=== PATIENT | male | born 1930 | race Caucasian/White ===

== ENCOUNTER 2018-03-22 21:03 | Inpatient (IN) | payer MEDICARE, MEDICAID ==
[~2018-03-22] VITALS: Ht 172.7 cm; Wt 65.8 kg
--- NOTE | 2018-03-22 21:25 | NUR ---
PATIENT BIB PRIVATE AMBULANCE FROM [facility] FOR FEVER. UPON ARRIVAL PATIENT IS AFBRILE. PATIENT IS A/O X1. F/C IN PLACE.
[2018-03-22 21:42] LABS: BASOPHILS # (AUTO) 0.1 K/uL (0.0-8.0); BASOPHILS % (AUTO) 0.6 % (0.0-2.0); EOSINOPHILS # (AUTO) 0.1 K/uL (0.0-0.7); EOSINOPHILS % (AUTO) 0.6 % (0.0-7.0); HEMATOCRIT 41.3 % (36.7-47.1); HEMOGLOBIN 13.9 g/dL (12.5-16.3); LYMPHOCYTES # (AUTO) 2.5 K/uL (20.0-40.0); LYMPHOCYTES % (AUTO) 18.7 % (20.5-51.5); MEAN CORPUSCULAR HEMOGLOBIN 30.3 uug (23.8-33.4); MEAN CORPUSCULAR HGB CONC 34 g/dL (32.5-36.3); MEAN CORPUSCULAR VOLUME 89.8 fL (73.0-96.2); MONOCYTES # (AUTO) 1.6 K/uL (2.0-10.0); NEUTROPHILS % (AUTO) 68.1 % (38.5-71.5); PLATELET COUNT (AUTO) 136 K/uL (152-348); WHITE BLOOD COUNT (AUTO) 13.2 K/uL (3.6-10.2)
[2018-03-22 21:51] LABS: CARBON DIOXIDE 28 mmol/L (21-32); CHLORIDE 103 mmol/L (98-107); GLUCOSE 121 mg/dL (74-106); UREA NITROGEN, BLOOD 9 mg/dL (7-18)
[2018-03-22] MEDS ORDERED: MEMA28CA PO (21:55)
[2018-03-22] MEDS ORDERED: TAMS-3 PO (21:55)
[2018-03-22] MEDS ORDERED: CARV6.252 PO (21:55)
[2018-03-22] MEDS ORDERED: ACET325T53 PO (21:55)
[2018-03-22] MEDS ORDERED: LORA-258 PO (21:55)
[2018-03-22] MEDS ORDERED: CHOL100043 PO (21:55)
[2018-03-22] MEDS ORDERED: LORA0.5T PO (21:55)
[2018-03-22] MEDS ORDERED: DIVA125T2 PO (21:55)
[2018-03-22 22:03] LABS: ALANINE AMINOTRANSFERASE 126 U/L (16-63); ALKALINE PHOSPHATASE 59 U/L (50-136); ASPARTATE AMINOTRANSFERASE 72 U/L (15-37); BILIRUBIN,DIRECT 0.3 mg/dL (0.0-0.2); TOTAL PROTEIN, SERUM 7.4 g/dL (6.4-8.2)
[2018-03-22 22:11] LABS: *BILIRUBIN,URIN NEGATIVE (NEGATIVE); *BLOOD, URINE Trace-lysed (NEGATIVE); *CLARITY,URINE CLEAR (CLEAR); *COLOR,URINE YELLOW (YELLOW); *KETONES,URINE TRACE (NEGATIVE); *PROTEIN,URINE NEGATIVE (NEGATIVE); LEUKOCYTE ESTERASE ,URINE 1+ (NEGATIVE); NITRITE, URINE NEGATIVE (NEGATIVE); PH,URINE 7.5 (5.0-8.0); UGLUCOSE NEGATIVE (NEGATIVE)
[2018-03-22] MEDS ORDERED: PIPERACILLIN SODIUM/TAZOBACTAM 3.375 G in IV DEXTROSE 5% 50 ML IV ONE (22:30)
[2018-03-22] MEDS ORDERED: VANCOMYCIN IV 1,000 MG in IV DEXTROSE 5% 250 ML IV ONE (22:30)
--- NOTE | 2018-03-22 22:32 | NUR ---
MAXIMILIANO PAGED, REBECCA ELLIS HIM DIRECTOR ASSEMBLY HAND WAS PAGED.
[2018-03-22] MEDS ORDERED: PIPERACILLIN/TAZOBACTAM/D5W 50 ML IV ONE (22:39)
[2018-03-22] MEDS ORDERED: VANCOMYCIN IV 200 ML ONE (22:58)
--- NOTE | 2018-03-22 23:18 | NUR ---
Pt. admitted to TELE , under care of Dr. EDWARDS Belongs List completed. REPORT GIVEN TO RISSA LALA
--- NOTE | 2018-03-22 23:30 | NUR ---
Received pt on tele unit via [employer], under care of DR GRACE MD. Pt awake, AxO x1 to name. Tele placed and noted to be V pacing with occasional PVCs with a HR of 72. O2 sat 97% with 4L NC. Redness on left groin area noted. Pt unable to provide any health history or further medical information. Unit orientation and pertinent assessments done. Pt shows no s/s of acute distress at this time. Will continue to monitor closely and carry out all orders.
[2018-03-23] MEDS ORDERED: ACETAMINOPHEN 325 MG TABLET PO PRN
[2018-03-23] MEDS ORDERED: MAGNESIUM HYDROXIDE 30 ML LIQUID UDC PO PRN
[2018-03-23] MEDS ORDERED: Z GUARD REMEDY PASTE 57 GM TUBE TOP PRN
[2018-03-23] MEDS ORDERED: MORPHINE SULFATE 2 MG/1 ML DISP.SYRIN IV PRN
[2018-03-23] MEDS ORDERED: ONDANSETRON 4 MG/2 ML VIAL IV PRN
[2018-03-23 00:36] VITALS: BP 133/78
[2018-03-23] MEDS: LORAZEPAM 2 MG/1 ML VIAL IV PRN ×2 (03:40→22:44)
[2018-03-23 05:00] VITALS: BP 95/56
[2018-03-23] MEDS ORDERED: PIPERACILLIN/TAZOBACTAM/D5W 3.375 G in PREMIXED 1 EACH IV SCH (06:00)
--- NOTE | 2018-03-23 06:15 | NUR ---
Pt slept intermittently throughout the night. Easily arousable during rounds. Pt had an episode of agitation, ativan given x1 with effect. Tele noted to be pacing with occasional PVC with HR of 84. O2 sat 96% via 2L NC. Pt shows no s/s of acute distress at this time. Bed alarm on and in low locked position, call light within reach. Safety precautions implemented. Will continue to monitor.
--- NOTE | 2018-03-23 06:30 | NUR ---
Pt awake, AxO x1 at this time. VS stable. No s/s of acute distress. Pt sent down to CT scan. Will endorse accordingly to day shift nurse.
[2018-03-23 06:47] LABS: BASOPHILS % (AUTO) 0.3 % (0.0-2.0); EOSINOPHILS # (AUTO) 0.2 K/uL (0.0-0.7); EOSINOPHILS % (AUTO) 1.3 % (0.0-7.0); LYMPHOCYTES # (AUTO) 2.9 K/uL (20.0-40.0); LYMPHOCYTES % (AUTO) 23.1 % (20.5-51.5); MEAN CORPUSCULAR HEMOGLOBIN 29.7 uug (23.8-33.4); MEAN CORPUSCULAR HGB CONC 33 g/dL (32.5-36.3); MEAN CORPUSCULAR VOLUME 89.3 fL (73.0-96.2); MONOCYTES % (AUTO) 15.9 % (0.0-11.0); NEUTROPHILS # (AUTO) 7.4 K/uL (1.8-8.9); NEUTROPHILS % (AUTO) 59.4 % (38.5-71.5); PLATELET COUNT (AUTO) 135 K/uL (152-348); RED BLOOD CELL COUNT(AUTO) 4.37 MIL/uL (4.06-5.63); WHITE BLOOD COUNT (AUTO) 12.5 K/uL (3.6-10.2)
[2018-03-23] MEDS: PANTOPRAZOLE SODIUM 40 MG VIAL IV SCH (06:54)
[2018-03-23 06:56] LABS: CARBON DIOXIDE 30 mmol/L (21-32); CHLORIDE 103 mmol/L (98-107); CHOLESTEROL 99 mg/dL (<200); CREATININE 0.9 mg/dL (0.6-1.3); GLUCOSE 87 mg/dL (74-106); HDL CHOLESTEROL 21 mg/dL (40-60); MAGNESIUM 1.7 mg/dL (1.8-2.4); PHOSPHOROUS 2.9 mg/dL (2.5-4.9); POTASSIUM 3.7 mmol/L (3.5-5.1); TRIGLYCERIDES 69 MG/DL (30-150)
[2018-03-23 07:39] LABS: LIPASE 70 U/L (73-393); UREA NITROGEN, BLOOD 12 mg/dL (7-18); VALPROIC ACID 19 ug/mL (50-100)
[2018-03-23 07:55] VITALS: BP 123/75
[2018-03-23 08:01] LABS: BAND % (MANUAL) 0 % (0-10); LYMPHOCYTES % (MANUAL) 22 % (20-40); MONOCYTES % (MANUAL) 15 % (2-10); NEUTROPHILS % (MANUAL) 63 % (42-75)
[2018-03-23] MEDS: CHOLECALCIFEROL 1,000 UNIT TABLET PO SCH (09:00)
[2018-03-23] MEDS: MEMANTINE HCL 10 MG TABLET PO SCH ×2 (09:00→21:11)
[2018-03-23] MEDS ORDERED: DIVALPROEX 125 MG TABLET.DR PO SCH (09:00)
[2018-03-23] MEDS: CARVEDILOL 6.25 MG TABLET PO SCH ×2 (09:49→17:32)
[2018-03-23] MEDS: HEPARIN SODIUM,PORCINE 5,000 UNITS/ML VIAL SQ SCH ×2 (09:50→21:15)
[2018-03-23 11:40] VITALS: BP 115/60
--- NOTE | 2018-03-23 12:19 | NUR ---
Clinical Pharmacy Note: Vancomycin Pharmacy to dose Subjective: To start vancomycin in this 87 y/o male for indication of empiric therapy. Also started zosyn, extended infusion Objective: weight 65kg height 172 cm BUN 9 Scr 1.0 wbc 12.5 temp 99.2 1gm vanco given 03/22 @ 2310 Assessment/Plan Will start vancomycin regimen of 1gm q20hr for estimated trough of 15.4, second dose today at 1900. Will order trough before 4th scheduled trough (not ordered yet). Will dose per level or adjust if renal function were to appear unstable. Will follow
[2018-03-23] MEDS: PIPERACILLIN/TAZOBACTAM/D5W 3.375 G in PREMIXED 1 EACH IV SCH ×2 (13:20→21:16)
[2018-03-23] MEDS: MAGNESIUM SULFATE/D5W 100 ML IV SCH ×2 (13:46→15:21)
[2018-03-23 15:47] VITALS: BP 114/64
[2018-03-23] MEDS: VANCOMYCIN IV 1 G in PREMIXED 0 EACH IV SCH ×2 (18:08→18:11)
--- NOTE | 2018-03-23 18:48 | NUR ---
Patient slept intermittently throughout the shift, occasional agitation, frequent orientation done. Patient on tele monitor V pacing. VS stable, afebrile. Occasional productive cough, suction as needed, mouth care provided. Aspiration precaution, HOB elevated. Patient kept clean/dry, repositioned as needed. Bed alarm on, will continue to monitor.
--- NOTE | 2018-03-23 19:45 | NUR ---
Received pt in bed awake, AxO x1. Tele noted to be 100% V pacing with HR 70. O2 sat 94% via 2L NC. Pt afebrile, denies pain at this time. Pt has episodes of agitation and yelling. Pt F/C noted, intact with no leak. HOB elevated. Aspiration precaution and comfort measures implemented. Bed on low locked position, will continue to monitor.
[2018-03-23 20:10] VITALS: BP 115/64
[2018-03-23] MEDS ORDERED: VALPROIC ACID 250 MG/5 ML LIQUID UDC GT SCH (21:00)
[2018-03-23] MEDS: TAMSULOSIN HCL 0.4 MG CAP.SR.24H PO SCH (21:11)
[2018-03-23] MEDS: VALPROIC ACID 250 MG/5 ML LIQUID UDC PO SCH (21:12)
[2018-03-24 00:31] VITALS: BP 105/62
[2018-03-24 05:33] VITALS: BP 127/74
[2018-03-24] MEDS: PIPERACILLIN/TAZOBACTAM/D5W 3.375 G in PREMIXED 1 EACH IV SCH ×3 (05:42→22:07)
[2018-03-24] MEDS: PANTOPRAZOLE SODIUM 40 MG VIAL IV SCH (06:28)
--- NOTE | 2018-03-24 07:10 | NUR ---
Pt slept well throughout the night. Tele noted to be V pacing with HR of 70. O2 sat 96% via 2L NC. Pt has episodes of agitation and restlessness. NPO after midnight orders followed during shift. IVs intact and patent with no s/s of redness or swelling. Carried out all orders. Pt shows no s/s of acute distress at this time, denies pain.Safety precautions maintained at all times. Bed alarm on, bed on low locked position. Call light within reach. Will endorse accordingly.
--- NOTE | 2018-03-24 07:30 | NUR ---
aspirations precautions implemented.
[2018-03-24] MEDS: VALPROIC ACID 250 MG/5 ML LIQUID UDC PO SCH ×2 (08:45→20:14)
[2018-03-24] MEDS: MEMANTINE HCL 10 MG TABLET PO SCH ×2 (08:46→20:14)
[2018-03-24] MEDS: CARVEDILOL 6.25 MG TABLET PO SCH ×2 (08:46→18:29)
[2018-03-24] MEDS: CHOLECALCIFEROL 1,000 UNIT TABLET PO SCH (08:46)
[2018-03-24] MEDS: HEPARIN SODIUM,PORCINE 5,000 UNITS/ML VIAL SQ SCH ×2 (08:48→20:12)
[2018-03-24 11:50] VITALS: BP 132/66
[2018-03-24] MEDS: LORAZEPAM 2 MG/1 ML VIAL IV PRN (13:46)
[2018-03-24] MEDS: VANCOMYCIN IV 1 G in PREMIXED 0 EACH IV SCH (14:16)
--- NOTE | 2018-03-24 15:58 | NUR ---
Temp 99.4 no labs today. Vancomycin trough level ordered for tomorrow at 1030 prior to 4th dose.
[2018-03-24 16:08] VITALS: BP 118/69
[2018-03-24] MEDS ORDERED: ZOLPIDEM 5 MG TABLET PO PRN (16:15)
--- NOTE | 2018-03-24 18:52 | NUR ---
patient remains in stable condition. patient denies any pain at this time. witness coughing after feeding and fluid intake even with proper aspiration precautions. notified Dr. Clay and still waiting speech therapy evaluation. patient intermittently becomes restless ans agitated. ativan 0.5 gram was given earlier today and was effective. patient has a bowel movements today. Dr. Clay has been notified earlier about Ultrasound of gallbladder results.
[2018-03-24 20:00] VITALS: BP 108/69
--- NOTE | 2018-03-24 20:00 | NUR ---
NSG: Received pt laying in bed, alert and oriented x1. on med surg status. patient is on O2 @ 2L via NC.sating 95%. Pt temp 100.4, tylenol 650 mg po given.patient Denies pain at this time. Pt has episodes of agitation and yelling. F/C patent draining yellow urine. HOB elevated. Aspiration precaution and comfort measures implemented. Bed on low locked position,call light w/in reach. will continue to monitor.
[2018-03-24] MEDS: TAMSULOSIN HCL 0.4 MG CAP.SR.24H PO SCH (20:14)
--- NOTE | 2018-03-24 20:25 | NUR ---
nsg: patient temp 100.4. tylenol 650 mg po given. cooling measure provided.continue monitoring for safety.
--- NOTE | 2018-03-24 21:25 | NUR ---
temp 98.9 now prn effective.
[2018-03-25] MEDS: LORAZEPAM 2 MG/1 ML VIAL IV PRN ×2 (03:04→20:19)
[2018-03-25 04:00] VITALS: BP 127/64
[2018-03-25] MEDS: PIPERACILLIN/TAZOBACTAM/D5W 3.375 G in PREMIXED 1 EACH IV SCH ×3 (05:36→21:07)
[2018-03-25 06:01] LABS: BASOPHILS % (AUTO) 0.7 % (0.0-2.0); EOSINOPHILS # (AUTO) 0.5 K/uL (0.0-0.7); EOSINOPHILS % (AUTO) 6.9 % (0.0-7.0); HEMATOCRIT 38.3 % (36.7-47.1); HEMOGLOBIN 12.9 g/dL (12.5-16.3); LYMPHOCYTES # (AUTO) 1.7 K/uL (20.0-40.0); LYMPHOCYTES % (AUTO) 23.8 % (20.5-51.5); MEAN CORPUSCULAR HEMOGLOBIN 30.1 uug (23.8-33.4); MEAN CORPUSCULAR HGB CONC 34 g/dL (32.5-36.3); MEAN CORPUSCULAR VOLUME 89.4 fL (73.0-96.2); MONOCYTES # (AUTO) 1.2 K/uL (2.0-10.0); MONOCYTES % (AUTO) 16.6 % (0.0-11.0); NEUTROPHILS # (AUTO) 3.8 K/uL (1.8-8.9); PLATELET COUNT (AUTO) 148 K/uL (152-348); RED BLOOD CELL COUNT(AUTO) 4.29 MIL/uL (4.06-5.63); WHITE BLOOD COUNT (AUTO) 7.3 K/uL (3.6-10.2)
[2018-03-25] MEDS: PANTOPRAZOLE SODIUM 40 MG TABLET.DR PO SCH (06:04)
[2018-03-25 06:10] LABS: CARBON DIOXIDE 29 mmol/L (21-32); CHLORIDE 106 mmol/L (98-107); CREATININE 0.9 mg/dL (0.6-1.3); GLUCOSE 91 mg/dL (74-106); MAGNESIUM 2.1 mg/dL (1.8-2.4); PHOSPHOROUS 2.8 mg/dL (2.5-4.9); POTASSIUM 4.2 mmol/L (3.5-5.1); UREA NITROGEN, BLOOD 18 mg/dL (7-18)
--- NOTE | 2018-03-25 06:17 | NUR ---
NSG: Pt slept well throughout the night. O2 sat 95% via 2L NC. Pt has episodes of agitation and restlessness. Ativan ivp given via rn as ordered for agitation. IVs intact and patent with no s/s of redness or swelling. Pt shows no s/s of acute distress at this time, Safety precautions maintained at all times.patient denies pain at this time. am po meds given tolerated well. Bed alarm on, bed on low locked position. Call light within reach.
--- NOTE | 2018-03-25 08:00 | NUR ---
Pt is in alert x 1. Aspiration precaution implemented. Bed alarm on. Took out Dentures to prevent pt from chocking secondary to the uppers were loose. Pt is in no acute distress. PT pleasantly confused. IV intact no s/s of infiltration.
[2018-03-25] MEDS: HEPARIN SODIUM,PORCINE 5,000 UNITS/ML VIAL SQ SCH ×2 (08:44→20:31)
[2018-03-25] MEDS: MEMANTINE HCL 10 MG TABLET PO SCH ×2 (08:44→20:31)
[2018-03-25] MEDS: CARVEDILOL 6.25 MG TABLET PO SCH ×2 (08:45→17:09)
[2018-03-25] MEDS: VALPROIC ACID 250 MG/5 ML LIQUID UDC PO SCH ×2 (08:45→20:31)
[2018-03-25] MEDS: CHOLECALCIFEROL 1,000 UNIT TABLET PO SCH (08:45)
[2018-03-25 09:40] LABS: EOSINOPHILS % (MANUAL) 9 % (0-8); LYMPHOCYTES % (MANUAL) 24 % (20-40); MONOCYTES % (MANUAL) 12 % (2-10); NEUTROPHILS % (MANUAL) 55 % (42-75)
[2018-03-25 11:18] VITALS: BP 131/72
--- NOTE | 2018-03-25 12:00 | NUR ---
Pt seen by speech therapist. Recommends puree diet. Notified speech that even after aspiration preacutions and proper feeding that pt would still cough afterwards. ST saw pt coughing after her eval states that its "REFLUX."
[2018-03-25] MEDS: VANCOMYCIN IV 1 G in PREMIXED 0 EACH IV SCH (12:22)
[2018-03-25 15:20] VITALS: BP 121/65
--- NOTE | 2018-03-25 15:56 | NUR ---
Clinical Pharmacy Note: Vancomycin Pharmacy to dose Subjective: To continue vancomycin in this 87 y/o male for indication of HCAP/UTI. Also started zosyn, extended infusion Objective: weight 65kg height 172 cm BUN 18 Scr 0.9 wbc 7.3 temp 98.4 Vancomycin trough today at 1030: 10.8 Assessment/Plan Since vancomycin trough is subtherapeutic, will increase dose to 1 gram IV every 16hrs(2nd dose tomorrow at 0400) and draw trough by 4th dose(not ordered yet) for expected trough around 15. Will monitor daily.
--- NOTE | 2018-03-25 18:33 | NUR ---
Pt is in no acute distress. Noted pt coughing again after feeding even with proper aspiration precaution. Call light is within reach.
--- NOTE | 2018-03-25 20:00 | NUR ---
RECEIVED PATIENT AWAKE IN BED. A/O X1. ON O2 2L SATING WELL. VSS. H/L INTACT AND PATENT. F/C INTACT AND PATENT. NO S/S OF PAIN OR DISCOMFORT. NO RESP. DISTRESS NOTED. CALL LIGHT IN REACH. ALL NEEDS ATTENDED. WILL CONTINUE TO MONITOR AND ASSESS.
[2018-03-25] MEDS: TAMSULOSIN HCL 0.4 MG CAP.SR.24H PO SCH (20:31)
[2018-03-25] MEDS: Z GUARD REMEDY PASTE 57 GM TUBE TOP SCH (20:31)
[2018-03-25 20:52] VITALS: BP 142/55
[2018-03-26] MEDS: VANCOMYCIN IV 1 G in PREMIXED 0 EACH IV SCH ×2 (03:03→19:51)
[2018-03-26] MEDS: PIPERACILLIN/TAZOBACTAM/D5W 3.375 G in PREMIXED 1 EACH IV SCH ×3 (05:37→21:25)
--- NOTE | 2018-03-26 05:58 | NUR ---
PATIENT ASLEEP IN BED. VSS. SLEPT WELL THROUGHOUT THE NIGHT. BED ALARM ON. ALL NEEDS ATTENDED,
[2018-03-26] MEDS: PANTOPRAZOLE SODIUM 40 MG TABLET.DR PO SCH (06:15)
[2018-03-26 06:53] VITALS: BP 130/65
[2018-03-26] MEDS: CHOLECALCIFEROL 1,000 UNIT TABLET PO SCH (08:26)
[2018-03-26] MEDS: MEMANTINE HCL 10 MG TABLET PO SCH ×2 (08:26→20:07)
[2018-03-26] MEDS: CARVEDILOL 6.25 MG TABLET PO SCH ×2 (08:26→17:50)
[2018-03-26] MEDS: VALPROIC ACID 250 MG/5 ML LIQUID UDC PO SCH ×2 (08:27→20:00)
[2018-03-26] MEDS: HEPARIN SODIUM,PORCINE 5,000 UNITS/ML VIAL SQ SCH ×2 (08:28→20:02)
[2018-03-26] MEDS: Z GUARD REMEDY PASTE 57 GM TUBE TOP SCH ×2 (09:25→20:03)
[2018-03-26 11:00] VITALS: BP 101/63
--- NOTE | 2018-03-26 13:36 | NUR ---
Clinical Pharmacy Note: Vancomycin Pharmacy to dose Subjective: To continue vancomycin in this 87 y/o male for indication of HCAP/UTI. Also started zosyn, extended infusion Objective: weight 65kg height 172 cm BUN 18 (03/25) Scr 0.9 (03/25) wbc 7.3(03/25) temp 98.2 Vancomycin trough today at 1030: 10.8 Assessment/Planw Will continue Vancomycin 1 gram IV every 16hrs(3rd dose tonight at 2200) and draw trough by 4th dose(ordered for tomorrow at 1130) for expected trough around 15. Will monitor daily.
[2018-03-26] MEDS: LORAZEPAM 2 MG/1 ML VIAL IV PRN ×2 (14:55→21:45)
--- NOTE | 2018-03-26 14:55 | NUR ---
administered ativan 0.5 mg. patient was showing signs of aggression and anxiety. Implemented other actions before chemical actions. tried calming the patient and distractions. patient continued to show aggression and vocalize foul language towards staff and yelling in room.
[2018-03-26 15:02] VITALS: BP 100/58
[2018-03-26 15:03] VITALS: BP 109/68
--- NOTE | 2018-03-26 18:35 | NUR ---
patient is resting in bed comfortably. patient continued to show difficulty swallowing food during meal. speech therapist seen patient and will follow up with video swallow tomorrow. DNP, marko collins has been notified and orders have been made. Aspiration precautions are continued to be implemented. patient is in stable condition and denies any pain or discomfort at this time. will continue to monitor patient closely.
--- NOTE | 2018-03-26 19:30 | NUR ---
Patient resting in bed comfortably at start of shift with no acute distress noted. Vital signs are in range. Patient appears to be confused upon assessment. On 4L o2 via NC with no SOB noted. Skin intact. Noted with BUE edema non-pitting. Also with redness in groin area. Will provide skin care through shift. Enrique cath is flowing with urine, bag off the floor & below the level of the bladder. On ATB therapy for PNA & UTI. No agitation noted at this time. Bed in low position, locked, x2 side rails up. HOB elevated to prevent aspiration. Call light within reach. Will continue to monitor patient through shift.
[2018-03-26] MEDS: LACTOBACILLUS RHAMNOSUS GG 1 EACH CAPSULE PO SCH (20:00)
[2018-03-26] MEDS: TAMSULOSIN HCL 0.4 MG CAP.SR.24H PO SCH (20:00)
[2018-03-26 20:41] VITALS: BP 117/72
[2018-03-27 04:00] VITALS: BP 122/72
[2018-03-27] MEDS: PIPERACILLIN/TAZOBACTAM/D5W 3.375 G in PREMIXED 1 EACH IV SCH ×3 (05:12→22:12)
[2018-03-27 06:17] LABS: BASOPHILS % (AUTO) 0.4 % (0.0-2.0); EOSINOPHILS # (AUTO) 0.4 K/uL (0.0-0.7); EOSINOPHILS % (AUTO) 4.5 % (0.0-7.0); HEMATOCRIT 38.4 % (36.7-47.1); HEMOGLOBIN 13.1 g/dL (12.5-16.3); LYMPHOCYTES # (AUTO) 2.3 K/uL (20.0-40.0); MEAN CORPUSCULAR HEMOGLOBIN 30.4 uug (23.8-33.4); MEAN CORPUSCULAR HGB CONC 34 g/dL (32.5-36.3); MEAN CORPUSCULAR VOLUME 89.3 fL (73.0-96.2); MONOCYTES % (AUTO) 11.7 % (0.0-11.0); NEUTROPHILS # (AUTO) 4.5 K/uL (1.8-8.9); NEUTROPHILS % (AUTO) 55.4 % (38.5-71.5); PLATELET COUNT (AUTO) 168 K/uL (152-348); WHITE BLOOD COUNT (AUTO) 8.2 K/uL (3.6-10.2)
[2018-03-27] MEDS: PANTOPRAZOLE SODIUM 40 MG TABLET.DR PO SCH (06:19)
--- NOTE | 2018-03-27 06:25 | NUR ---
Patient slept intermittently during the night. No acute distress noted. Vital signs within range. No signs of aspiration during the shift. HOB kept elevated at all times. No SOB noted. On 4L oxygen via NC. Patient noted with agitation during shift. Administered Ativan per MD order. Enrique cath with good urine output. All needs attended to. Kept clean & dry. Changed per diaper soiling. Skin care provided. Safety measures maintained. Call light within reach. Will endorse to oncoming shift.
[2018-03-27 06:47] LABS: CARBON DIOXIDE 29 mmol/L (21-32); CHLORIDE 104 mmol/L (98-107); GLUCOSE 98 mg/dL (74-106); MAGNESIUM 1.9 mg/dL (1.8-2.4); PHOSPHOROUS 2.6 mg/dL (2.5-4.9); POTASSIUM 4.3 mmol/L (3.5-5.1); UREA NITROGEN, BLOOD 17 mg/dL (7-18)
--- NOTE | 2018-03-27 07:24 | NUR ---
PATIENT RESTING COMFORTABLY IN BED AT THIS TIME. NO SIGNS OF DISTRESS. STABLE CONDITION. SAFETY MEASURES IMPLEMENTED. BED ALARM ON, CALL LIGHT WITHIN REACH. WILL REORIENT NEEDED THROUGHOUT SHIFT. WILL CONTINUE TO MONITOR.
[2018-03-27] MEDS: VALPROIC ACID 250 MG/5 ML LIQUID UDC PO SCH ×2 (08:26→20:27)
[2018-03-27] MEDS: LACTOBACILLUS RHAMNOSUS GG 1 EACH CAPSULE PO SCH ×2 (08:28→20:27)
[2018-03-27] MEDS: CHOLECALCIFEROL 1,000 UNIT TABLET PO SCH (08:28)
[2018-03-27] MEDS: CARVEDILOL 6.25 MG TABLET PO SCH ×2 (08:28→17:59)
[2018-03-27] MEDS: MEMANTINE HCL 10 MG TABLET PO SCH ×2 (08:28→20:27)
[2018-03-27] MEDS: HEPARIN SODIUM,PORCINE 5,000 UNITS/ML VIAL SQ SCH ×2 (08:29→20:30)
[2018-03-27] MEDS: Z GUARD REMEDY PASTE 57 GM TUBE TOP SCH ×2 (08:36→20:31)
[2018-03-27] MEDS: QUETIAPINE FUMARATE 25 MG TABLET PO SCH ×2 (10:40→20:29)
[2018-03-27 11:24] VITALS: BP 98/55
--- NOTE | 2018-03-27 12:12 | NUR ---
Clinical Pharmacy Note: Vancomycin Pharmacy to dose Subjective: To continue vancomycin in this 87 y/o male for indication of HCAP/UTI. Also started zosyn, extended infusion Objective: weight 65kg height 172 cm BUN 17 Scr 1.0 wbc 8.2 temp 98.2 Vancomycin trough pending today 1130 Assessment/Planw Will continue Vancomycin 1 gram IV every 16hrs for expected trough around 15, trough pending today at 1130. Will follow level and adjust as needed when available today Addendum: 03/27/18 at 1219 by FELIX DOBBINS ADM trough came back 16.1, within range. Will continue regimen 1gm q16h for now. Will follow
[2018-03-27] MEDS: VANCOMYCIN IV 1 G in PREMIXED 0 EACH IV SCH (12:27)
[2018-03-27] MEDS ORDERED: BARIUM SULFATE 240 ML ORAL.SUSP PO ONE (15:08)
[2018-03-27] MEDS ORDERED: BARIUM SULFATE 148 GM SUSP.RECON PO ONE (15:08)
[2018-03-27 15:10] VITALS: BP 96/58
[2018-03-27 18:20] VITALS: BP 132/76
--- NOTE | 2018-03-27 18:32 | NUR ---
PATIENT SHOUTING LOUDLY IN ROOM AT THIS TIME. NO SIGNS OF RESPIRATORY DISTRESS. NO SIGNS OF ASPIRATION THROUGHOUT SHIFT. PATIENT PASSED BARIUM SWALLOW TODAY BUT STILL AT HIGH RISK FOR ASPIRATION DUE TO INCOMPLETE SWALLOWING. SPEECH THERAPIST INFORMED TO HAVE PATIENT SWALLOW AT LEAST TWICE PER BITE/SPOON OF FOOD. VITAL SIGNS STABLE. STRICT ASPIRATION PRECAUTIONS IMPLEMENTED THROUGHOUT SHIFT. ON OXYGEN 3L NC. CONTINUES TO BE DEMENTED/CONFUSED. REORIENTATION SUCCESSFUL FOR ONLY A SHORT PERIOD OF TIME. SAFETY MEASURES IMPLEMENTED. WILL CONTINUE TO MONITOR THROUGHOUT SHIFT.
--- NOTE | 2018-03-27 19:00 | NUR ---
RECEIVED IN BED AWAKE, BUT FORGETFUL NO COMPLAIN OF PAIN AT THIS TIME. WITH EPISODES OF YELLING FOR NO REASON, REORIENT PATIENT AND KEPT CLEAN AND DRY. PATIENT HAS EPISODES OF COUGHING WHEN DRINKING THIN LIQUIDS, KEPT HOB ELEVATED AT 45 DEGREES, TAUGHT PATIENT TO DO "BIG SWALLOW" AND COUGHING WAS RELIEVE. WILL CONT TO MONITOR.
[2018-03-27 20:00] VITALS: BP 107/55
[2018-03-27] MEDS: TAMSULOSIN HCL 0.4 MG CAP.SR.24H PO SCH (20:27)
[2018-03-28 04:00] VITALS: BP 123/66
[2018-03-28] MEDS: VANCOMYCIN IV 1 G in PREMIXED 0 EACH IV SCH (05:17)
[2018-03-28] MEDS: PANTOPRAZOLE SODIUM 40 MG TABLET.DR PO SCH (06:02)
[2018-03-28] MEDS: PIPERACILLIN/TAZOBACTAM/D5W 3.375 G in PREMIXED 1 EACH IV SCH ×2 (06:07→13:33)
--- NOTE | 2018-03-28 06:46 | NUR ---
PATIENT SLEPT MOST THE NIGHT, WITH EPISODES OF YELLING AND SCREAMING FOR NO APPARENT REASON, KEPT HOB ELEVATED, NO COMPLAIN OF PAIN NOR DISCOMFORT, CONT ABX FOR PNA/UTI WITH NO ADVERSE REACTION NOTED. KEPT CLEAN AND DRY. CONT TO MONITOR.
--- NOTE | 2018-03-28 07:31 | NUR ---
patient resting in bed at this time. no signs of respiratory distress. aspiration precautions implemented. stable at this time. no signs of agitation. patient is not shouting at this time. bed alarm on, call light within reach. safety measures implemented. will continue to monitor.
--- NOTE | 2018-03-28 07:34 | NUR ---
on 3L NC. saturating WNL.
[2018-03-28] MEDS: QUETIAPINE FUMARATE 25 MG TABLET PO SCH (08:34)
[2018-03-28] MEDS: VALPROIC ACID 250 MG/5 ML LIQUID UDC PO SCH (08:34)
[2018-03-28] MEDS: MEMANTINE HCL 10 MG TABLET PO SCH (08:34)
[2018-03-28] MEDS: CARVEDILOL 6.25 MG TABLET PO SCH (08:34)
[2018-03-28] MEDS: CHOLECALCIFEROL 1,000 UNIT TABLET PO SCH (08:34)
[2018-03-28] MEDS: LACTOBACILLUS RHAMNOSUS GG 1 EACH CAPSULE PO SCH (08:35)
[2018-03-28] MEDS: HEPARIN SODIUM,PORCINE 5,000 UNITS/ML VIAL SQ SCH (08:37)
[2018-03-28] MEDS: Z GUARD REMEDY PASTE 57 GM TUBE TOP SCH (08:37)
[2018-03-28] MEDS ORDERED: QUETIAPINE FUMARATE 25 MG TABLET PO PRN (10:15)
[2018-03-28 11:01] VITALS: BP 127/67
--- NOTE | 2018-03-28 11:25 | NUR ---
Clinical Pharmacy Note: Vancomycin Pharmacy to dose Subjective: To continue vancomycin in this 87 y/o male for indication of HCAP/UTI. Also started zosyn, extended infusion Objective: weight 65kg height 172 cm BUN 17 (03/27) Scr 1.0 (03/27) wbc 8.2 (03/27) temp 98.3 Vancomycin trough level: 16.1 (on 03/27 at 1130) Assessment/Plan Will continue same dose of Vancomycin 1 gram IV every 16hrs for today. Next dose due today at 1999. Will continue to follow
[2018-03-28 15:29] VITALS: BP 112/50
[2018-03-28] MEDS ORDERED: QUET25TA PO (15:31)
--- NOTE | 2018-03-28 17:10 | NUR ---
PATIENT DISCHARGED AT THIS TIME. NO SIGNS OF DISTRESS. REPORT GIVEN TO COLEEN KWOK AT [facility]. NO SIGNS OF ASPIRATION. ASPIRATION PRECAUTIONS LEFT IN. 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 DISCHARGE PACKET COMPLETED. SENT WITH PATIENT AND AMBULANCE. PATIENT DISCHARGED FROM [facility] WITH AMBULANCE SAFELY TO [facility].
[2018-04-01] MEDS ORDERED: DEXT1CAP3 PO (11:28)
[2018-04-01] MEDS ORDERED: QUET25TA PO ×2 (11:28)
== END 2018-03-28 17:10 | DRG 871 ==
LOC: ER 21:11 → TELE 23:26 → MED 03-24 16:40
PROVIDERS: ADMIT Hospitalist; ATTEND Hospitalist
DX: A41.9 Sepsis, unspecified organism (principal); J69.0 Pneumonitis due to inhalation of food and vomit; I50.33 Acute on chronic diastolic (congestive) heart failure; E44.0 Moderate protein-calorie malnutrition; Z68.22 Body mass index [BMI] 22.0-22.9, adult; G30.9 Alzheimer's disease, unspecified; F02.80 Dementia in other diseases classified elsewhere, unspecified severity, without behavioral disturbance, psychotic disturbance, mood disturbance, and anxiety; N40.0 Benign prostatic hyperplasia without lower urinary tract symptoms; Z87.891 Personal history of nicotine dependence; Z87.440 Personal history of urinary (tract) infections; R47.02 Dysphasia; N21.0 Calculus in bladder; K80.20 Calculus of gallbladder without cholecystitis without obstruction; F31.9 Bipolar disorder, unspecified; F41.9 Anxiety disorder, unspecified; E83.42 Hypomagnesemia; D69.6 Thrombocytopenia, unspecified; Z95.810 Presence of automatic (implantable) cardiac defibrillator; I11.0 Hypertensive heart disease with heart failure; M43.25 Fusion of spine, thoracolumbar region; R13.10 Dysphagia, unspecified
CPT/HCPCS: 36415; 70030-TC; 71045; 74230; 80164; 83605; 83690; 83735; 84100; 85025; 85730; 87040; 87086; 87400; 92526; 92610; 92611; 93005; 93307; 97110; 97530; C9113; G0378; J1644; J2060; J2543; J3370; J3475; J7030; J7040

== ENCOUNTER 2018-04-11 21:16 | Inpatient (IN) | payer MEDICARE, MEDICAID ==
[~2018-04-11] VITALS: Ht 165.1 cm; Wt 76.4 kg
[~2018-04-11 21:16] MED LIST: ACET325T53 PO; CARV6.252 PO; CHOL100043 PO; DEXT1CAP3 PO; DIVA125T2 PO; LACT1CAP57 PO; LORA-258 PO; MEMA10TA PO; METO25TA6 PO; NYST15CR TOP; PANT40TA2 PO; QUET25TA PO; TAMS-3 PO
[2018-04-11] MEDS ORDERED: IV NORMAL SALINE 500 ML BAG IV ONE (21:30)
[2018-04-11] MEDS ORDERED: ONDANSETRON 4 MG/2 ML VIAL IV PRN (21:30)
[2018-04-11] MEDS ORDERED: ACETAMINOPHEN 650 MG SUPP.RECT RC PRN (21:30)
[2018-04-11 21:55] LABS: BASOPHILS # (AUTO) 0.1 K/uL (0.0-8.0); BASOPHILS % (AUTO) 0.7 % (0.0-2.0); EOSINOPHILS # (AUTO) 0.8 K/uL (0.0-0.7); EOSINOPHILS % (AUTO) 6.7 % (0.0-7.0); HEMATOCRIT 30.4 % (36.7-47.1); LYMPHOCYTES # (AUTO) 2.2 K/uL (20.0-40.0); LYMPHOCYTES % (AUTO) 17.2 % (20.5-51.5); MEAN CORPUSCULAR HEMOGLOBIN 28.8 uug (23.8-33.4); MEAN CORPUSCULAR HGB CONC 33 g/dL (32.5-36.3); MEAN CORPUSCULAR VOLUME 87.4 fL (73.0-96.2); MONOCYTES # (AUTO) 1.5 K/uL (2.0-10.0); MONOCYTES % (AUTO) 12.3 % (0.0-11.0); NEUTROPHILS # (AUTO) 7.9 K/uL (1.8-8.9); NEUTROPHILS % (AUTO) 63.1 % (38.5-71.5); PLATELET COUNT (AUTO) 258 K/uL (152-348); RED BLOOD CELL COUNT(AUTO) 3.48 MIL/uL (4.06-5.63); WHITE BLOOD COUNT (AUTO) 12.5 K/uL (3.6-10.2)
[2018-04-11 21:56] LABS: *BILIRUBIN,URIN 1+ (NEGATIVE); *BLOOD, URINE 1+ (NEGATIVE); *COLOR,URINE DARK YELLOW (YELLOW); *KETONES,URINE NEGATIVE (NEGATIVE); *PROTEIN,URINE 1+ (NEGATIVE); LEUKOCYTE ESTERASE ,URINE NEGATIVE (NEGATIVE); NITRITE, URINE NEGATIVE (NEGATIVE); PH,URINE 6.5 (5.0-8.0); UGLUCOSE NEGATIVE (NEGATIVE)
[2018-04-11 22:01] LABS: *CLARITY,URINE SLIGHTLY HAZY (CLEAR)
--- NOTE | 2018-04-11 22:02 | NUR ---
Patient BIB private ambulance ([id number]) from [facility] for weakness and difficulty swallowing x1 day. Sent here by Dr Bravo. Pt arrived with left upper arm midline and clifton catheter in place. Pt is AAO x 1, responsive to verbal and tactile stimuli. On assessment, patient is able to follow commands and make needs/discomfort known. Safe environment implemented.
[2018-04-11 22:03] LABS: MUCUS,URINE MANY /LPF (0-FEW)
[2018-04-11 22:03] LABS: CARBON DIOXIDE 27 mmol/L (21-32); CHLORIDE 108 mmol/L (98-107); CREATININE 0.8 mg/dL (0.6-1.3); GLUCOSE 106 mg/dL (74-106); POTASSIUM 4.1 mmol/L (3.5-5.1); UREA NITROGEN, BLOOD 22 mg/dL (7-18)
[2018-04-11 22:09] LABS: ALANINE AMINOTRANSFERASE 127 U/L (16-63); ALKALINE PHOSPHATASE 77 U/L (50-136); ASPARTATE AMINOTRANSFERASE 156 U/L (15-37); BILIRUBIN,DIRECT 0.7 mg/dL (0.0-0.2); BILIRUBIN,TOTAL 1.5 mg/dL (0.2-1.0); LIPASE 308 U/L (73-393); TOTAL PROTEIN, SERUM 6.4 g/dL (6.4-8.2)
[2018-04-11] MEDS ORDERED: BISA10SU12 RC (22:11)
[2018-04-11] MEDS ORDERED: HYDR-3326 PO (22:11)
[2018-04-11] MEDS ORDERED: MAGN400O6 PO (22:11)
[2018-04-11] MEDS ORDERED: ENOX40DI SQ (22:11)
--- NOTE | 2018-04-11 22:54 | NUR ---
Dr. Shipman on phone with Dr. Maynor Bravo.
[2018-04-11] MEDS ORDERED: CEFTRIAXONE 1 G VIAL ONE (22:57)
[2018-04-11] MEDS ORDERED: CEFTRIAXONE 1 G in IV DEXTROSE 5% 50 ML IV ONE (23:00)
--- NOTE | 2018-04-11 23:06 | NUR ---
Hands off report given to receiving primary care nurse. Pt will be admitted to telemetry , under care of Dr. Bravo. Belongs List completed.
--- NOTE | 2018-04-11 23:20 | NUR ---
IN FROM ER VIA [facility], ADMITTED 87 YEAR OLD MALE WITH DX OF FAILURE TO THRIVE. AAOX1, REORIENTATION PROVIDED. NO SIGNS OF ACUTE DISTRESS NOTED AT THIS TIME. ON TELE V PACING WITH PVCs WITH HR OF 84. MIDLINE ON NATHANIEL, PATENT AND INTACT. ON O2 2LPM, TOLERATING WELL WITH O2 SAT OF 97%. ON MORENO CATHETER, DRAINING WELL VIA GRAVITY. ROUTINE ADMISSION DONE. SNF ASSESSMENT DONE. PLAN OF CARE INITIATED. SAFETY MEASURES INITIATED, PLACED BED ON LOW AND LOCKED POSITION WITH TWO SIDE RAILS UP. BED ALARM ON.
[2018-04-11 23:30] VITALS: BP 143/76
[2018-04-12] MEDS: IV D5 1/2 NS 1000 ML 1,000 ML IV PRN (00:17)
[2018-04-12 05:14] VITALS: BP 125/69
--- NOTE | 2018-04-12 06:06 | NUR ---
PATIENT ON BED, AAOX1, REDIRECTED NEEDED. NO SIGNIFICANT CHANGES THROUGHOUT THE SHIFT. NO SIGNS OF ACUTE DISTRESS AT THIS TIME. ON TELE V PACING WITH OCCASIONAL PVC WITH HR OF 77. ON MORENO CATHETER DRAINING WELL VIA GRAVITY, KEPT URINE BAG OFF THE FLOOR AT ALL TIMES. ALL NEEDS ANTICIPATED AND ATTENDED. KEPT PATIENT SAFE AND COMFORTABLE AT ALL TIMES.
[2018-04-12 06:47] LABS: BASOPHILS # (AUTO) 0.1 K/uL (0.0-8.0); BASOPHILS % (AUTO) 0.4 % (0.0-2.0); EOSINOPHILS # (AUTO) 0.8 K/uL (0.0-0.7); EOSINOPHILS % (AUTO) 6.2 % (0.0-7.0); HEMATOCRIT 30.3 % (36.7-47.1); MEAN CORPUSCULAR HEMOGLOBIN 28.6 uug (23.8-33.4); MEAN CORPUSCULAR HGB CONC 33 g/dL (32.5-36.3); MEAN CORPUSCULAR VOLUME 87.1 fL (73.0-96.2); MONOCYTES # (AUTO) 1.6 K/uL (2.0-10.0); MONOCYTES % (AUTO) 12.9 % (0.0-11.0); NEUTROPHILS # (AUTO) 7.9 K/uL (1.8-8.9); NEUTROPHILS % (AUTO) 64.5 % (38.5-71.5); PLATELET COUNT (AUTO) 242 K/uL (152-348); RED BLOOD CELL COUNT(AUTO) 3.48 MIL/uL (4.06-5.63); WHITE BLOOD COUNT (AUTO) 12.3 K/uL (3.6-10.2)
[2018-04-12] MEDS: PANTOPRAZOLE SODIUM 40 MG VIAL IV SCH (08:16)
[2018-04-12 11:38] VITALS: BP 128/64
--- NOTE | 2018-04-12 12:56 | NUR ---
WOUND CARE CONSULT: PT PRESENTS WITH MULTIPLE SKIN ISSUES INCLUDING INTACT DEEP TISSUE INJURIES TO LEFT HEEL WITH INTACT BLISTER, INTACT DEEP TISSUE INJURY TO MIDBACK, OPEN BLISTER TO LEFT POPLITEAL AREA AND CLOSED INCISIONS TO LEFT HIP AND THIGH, PRESENT ON ADMISSION. RECOMMEND DPM CONSULT. ALL SKIN PROTECTION AND WOUND CARE RECOMMENDATIONS DISCUSSED WITH NURSING STAFF. FIRST STEP LOW AIRLOSS MATTRESS ORDERED. WILL SEE PRN. SPENCER IN AGREEMENT WITH PLAN OF CARE. Addendum: 04/12/18 at 1258 by MIGUEL A HANNA RN Amended: Links added.
[2018-04-12] MEDS ORDERED: Z GUARD REMEDY PASTE 57 GM TUBE TOP PRN (13:00)
[2018-04-12 16:00] VITALS: BP 162/59
--- NOTE | 2018-04-12 18:41 | NUR ---
Pt was seen by wound care nurse and she stated that the pt has a DTI on the left heel and upper back of pt. The heel is off loaded and the pt is positioned with pillows to releive pressure of the back. Apprentice Painter Neckties came to see pt as well. pt shows no signs of respiratory distress. pt also had a swallow eval and she recommended puree diet and to feed very slowly. pt is now on aspiration precautions and a note was left as a reminder on the wall for everyone.
--- NOTE | 2018-04-12 18:46 | NUR ---
Pt observed resting in bed with no signs of respiratory distress. Continue to monitor pt.
[2018-04-12] MEDS: CARVEDILOL 6.25 MG TABLET PO SCH (18:51)
[2018-04-12 19:13] VITALS: BP 129/77
--- NOTE | 2018-04-12 20:00 | NUR ---
Received patient laying in bed. HOB elevated. A/O x 2. O2 2l NC. Denies pain or SOB. IVF infusing on the left upper arm. TELE Vpacing @ 85. Enrique draining tea color urine. Noted bilateral arms and foot edema, non pitting. Dressing on the left leg, C/D/I. Patient has a productive cough. Safety initiated. Call light within reach. Will continue to monitor.
[2018-04-12] MEDS: Z GUARD REMEDY PASTE 57 GM TUBE TOP SCH (20:30)
--- NOTE | 2018-04-12 20:30 | NUR ---
Noted blister on the left heel, covered with mepilex and off loading. DTI in the back. Turned and repositioned. Will closely monitor.
[2018-04-12] MEDS: MORPHINE SULFATE 4 MG/1 ML DISP.SYRIN IV PRN (22:25)
--- NOTE | 2018-04-12 22:28 | NUR ---
Patient c/o pain in the back evidence by facial grimacing, moaning and screaming. Turned and Repositioned. Morphine 2 mg. given. Vital signs checked, stable. TELE Vpacing at 85. Will closely monitor.
[2018-04-12 23:00] VITALS: BP 115/72
[2018-04-13] MEDS: IV D5 1/2 NS 1000 ML 1,000 ML IV PRN ×2 (02:32→16:46)
[2018-04-13 03:13] VITALS: BP 114/64
--- NOTE | 2018-04-13 05:21 | NUR ---
Wound care provided. Tolerated it well. Will continue to monitor.
[2018-04-13 06:03] LABS: THYROID STIMULATING HORMONE 1.935 mIU/mL (0.358-3.740)
--- NOTE | 2018-04-13 06:26 | NUR ---
Patient slept intermittently t/o shift. C/O pain in the his back. Medication given, stated relief. TELE VPacing at 74. On 2L NC. IVF infusing on the left upper arm, patent and intact. Dressing on the left leg C/D/I. Heels off loaded. Turn and repositioned Q2H. Enrique draining clear jailyn/tea color urine. Safety and comfort measures maintained t/o shift. Vital signs stable. Fall precautions observed t/o shift. All meds given as ordered. All needs met.
[2018-04-13] MEDS: CARVEDILOL 6.25 MG TABLET PO SCH ×2 (08:24→18:00)
[2018-04-13] MEDS: PANTOPRAZOLE SODIUM 40 MG VIAL IV SCH (08:24)
[2018-04-13] MEDS: MORPHINE SULFATE 4 MG/1 ML DISP.SYRIN IV PRN ×4 (08:25→22:30)
[2018-04-13] MEDS: Z GUARD REMEDY PASTE 57 GM TUBE TOP SCH ×2 (08:25→21:58)
[2018-04-13 11:16] VITALS: BP 128/63
[2018-04-13] MEDS ORDERED: BISACODYL 10 MG SUPP.RECT RC PRN (13:30)
[2018-04-13] MEDS: MEMANTINE HCL 10 MG TABLET PO SCH (15:03)
[2018-04-13 15:28] VITALS: BP 131/68
[2018-04-13 19:04] VITALS: BP 117/73
--- NOTE | 2018-04-13 19:40 | NUR ---
Received patient sleeping in bed. No distress or SOB noted. Sinus rhythm. Bed is locked and in lowest position with 2/4 side rails up and bed alarm on for safety. Call light within reach. will continue to monitor
[2018-04-13] MEDS: TAMSULOSIN HCL 0.4 MG CAP.SR.24H PO SCH (21:58)
[2018-04-13] MEDS: LORAZEPAM 0.5 MG TABLET PO SCH (21:58)
[2018-04-13] MEDS: LACTOBACILLUS RHAMNOSUS GG 1 EACH CAPSULE PO SCH (21:58)
[2018-04-13] MEDS: DIVALPROEX 125 MG TABLET.DR PO SCH (21:58)
[2018-04-13] MEDS: QUETIAPINE FUMARATE 25 MG TABLET PO SCH (21:59)
[2018-04-13 23:45] VITALS: BP 121/74
[2018-04-14 03:34] VITALS: BP 127/43
[2018-04-14] MEDS: IV D5 1/2 NS 1000 ML 1,000 ML IV PRN ×2 (06:19→21:15)
[2018-04-14 06:45] LABS: BASOPHILS # (AUTO) 0.1 K/uL (0.0-8.0); BASOPHILS % (AUTO) 0.6 % (0.0-2.0); EOSINOPHILS # (AUTO) 0.6 K/uL (0.0-0.7); EOSINOPHILS % (AUTO) 4.7 % (0.0-7.0); HEMATOCRIT 30.8 % (36.7-47.1); HEMOGLOBIN 10.3 g/dL (12.5-16.3); LYMPHOCYTES # (AUTO) 2.8 K/uL (20.0-40.0); LYMPHOCYTES % (AUTO) 23.7 % (20.5-51.5); MEAN CORPUSCULAR HEMOGLOBIN 29.1 uug (23.8-33.4); MEAN CORPUSCULAR HGB CONC 33 g/dL (32.5-36.3); MEAN CORPUSCULAR VOLUME 87.2 fL (73.0-96.2); MONOCYTES # (AUTO) 1.4 K/uL (2.0-10.0); MONOCYTES % (AUTO) 11.7 % (0.0-11.0); NEUTROPHILS # (AUTO) 7.1 K/uL (1.8-8.9); NEUTROPHILS % (AUTO) 59.3 % (38.5-71.5); PLATELET COUNT (AUTO) 253 K/uL (152-348); RED BLOOD CELL COUNT(AUTO) 3.54 MIL/uL (4.06-5.63); WHITE BLOOD COUNT (AUTO) 11.9 K/uL (3.6-10.2)
[2018-04-14 06:55] LABS: ALANINE AMINOTRANSFERASE 79 U/L (16-63); ALKALINE PHOSPHATASE 76 U/L (50-136); ASPARTATE AMINOTRANSFERASE 58 U/L (15-37); BILIRUBIN,TOTAL 0.9 mg/dL (0.2-1.0); CARBON DIOXIDE 29 mmol/L (21-32); CHLORIDE 107 mmol/L (98-107); CREATININE 0.8 mg/dL (0.6-1.3); GLUCOSE 106 mg/dL (74-106); PHOSPHOROUS 2.7 mg/dL (2.5-4.9); POTASSIUM 4.2 mmol/L (3.5-5.1); TOTAL PROTEIN, SERUM 6.1 g/dL (6.4-8.2); UREA NITROGEN, BLOOD 13 mg/dL (7-18)
[2018-04-14] MEDS: CARVEDILOL 6.25 MG TABLET PO SCH ×2 (08:00→17:37)
[2018-04-14] MEDS: PANTOPRAZOLE SODIUM 40 MG VIAL IV SCH (08:44)
[2018-04-14] MEDS: CHOLECALCIFEROL 1,000 UNIT TABLET PO SCH (08:44)
[2018-04-14] MEDS: LACTOBACILLUS RHAMNOSUS GG 1 EACH CAPSULE PO SCH ×2 (08:44→21:08)
[2018-04-14] MEDS: DIVALPROEX 125 MG TABLET.DR PO SCH ×2 (08:44→21:08)
[2018-04-14] MEDS: MEMANTINE HCL 10 MG TABLET PO SCH ×2 (08:44→17:38)
[2018-04-14] MEDS: LORAZEPAM 0.5 MG TABLET PO SCH ×2 (08:44→21:08)
[2018-04-14] MEDS: ENOXAPARIN SODIUM 40 MG/0.4 ML DISP.SYRIN SQ SCH (08:46)
[2018-04-14] MEDS: Z GUARD REMEDY PASTE 57 GM TUBE TOP SCH ×2 (08:47→21:08)
[2018-04-14] MEDS ORDERED: Medication Not On Formulary EA (Dextromethorphan Hbr/Quinidine (Nuedexta 20-10 Mg Capsul PO SCH (09:00)
[2018-04-14 11:10] VITALS: BP 145/74
[2018-04-14] MEDS: MORPHINE SULFATE 4 MG/1 ML DISP.SYRIN IV PRN (11:15)
[2018-04-14 15:32] VITALS: BP 106/65
--- NOTE | 2018-04-14 20:00 | NUR ---
Received patient laying in bed. HOB elevated. A/O x 2. O2 2l NC. On KCI mattress. Denies pain or SOB. IVF infusing on the left upper arm. TELE Vpacing @ 95. Enrique draining tea color urine. Noted bilateral arms and foot edema, non pitting. Dressing on the left leg and foot, C/D/I. Both feet off loaded. Safety initiated. Call light within reach. Will continue to monitor.
[2018-04-14 20:26] VITALS: BP 164/92
[2018-04-14] MEDS: QUETIAPINE FUMARATE 25 MG TABLET PO SCH (21:08)
[2018-04-14] MEDS: TAMSULOSIN HCL 0.4 MG CAP.SR.24H PO SCH (21:08)
[2018-04-14 23:18] VITALS: BP 141/40
[2018-04-15 04:00] VITALS: BP 130/62
--- NOTE | 2018-04-15 05:08 | NUR ---
Patient slept intermittently t/o shift. TELE VPacing at 71. On 3L NC. IVF infusing on the left upper arm, patent and intact. Dressing on the left leg C/D/I. Heels off loaded. Turn and repositioned Q2H. Enrique draining clear tea color urine. Safety and comfort measures maintained t/o shift. Vital signs stable. Fall precautions observed t/o shift. All meds given as ordered. All needs met.
[2018-04-15] MEDS: PANTOPRAZOLE SODIUM 40 MG TABLET.DR PO SCH (06:45)
--- NOTE | 2018-04-15 07:30 | NUR ---
patient received resting on air mattress with oxygen on via nasal canula @ 3liters, IV fluids D5 1/2 NS running at 70ml/hr on midline of upper left arm, patient clifton draining via gravity no distress noted continue to monitor call light within reach.
[2018-04-15 08:54] VITALS: BP 129/70
[2018-04-15] MEDS: LORAZEPAM 0.5 MG TABLET PO SCH ×2 (09:02→19:53)
[2018-04-15] MEDS: LACTOBACILLUS RHAMNOSUS GG 1 EACH CAPSULE PO SCH ×2 (09:02→19:53)
[2018-04-15] MEDS: CHOLECALCIFEROL 1,000 UNIT TABLET PO SCH (09:02)
[2018-04-15] MEDS: MEMANTINE HCL 10 MG TABLET PO SCH ×2 (09:02→17:08)
[2018-04-15] MEDS: CARVEDILOL 6.25 MG TABLET PO SCH ×2 (09:03→17:08)
[2018-04-15] MEDS: DIVALPROEX 125 MG TABLET.DR PO SCH ×2 (09:04→19:53)
[2018-04-15] MEDS: Z GUARD REMEDY PASTE 57 GM TUBE TOP SCH ×2 (09:07→19:53)
[2018-04-15] MEDS: ENOXAPARIN SODIUM 40 MG/0.4 ML DISP.SYRIN SQ SCH (09:10)
[2018-04-15] MEDS: IV D5 1/2 NS 1000 ML 1,000 ML IV PRN (10:31)
[2018-04-15 11:05] VITALS: BP 131/71
--- NOTE | 2018-04-15 12:11 | NUR ---
Received call from Dr Merrill, patient will be having surgery for Defibrillator Change Out, scheduled for 0730am tomorrow 04/16/18. Received verbal orders to obtain consent. NPO after midnight and Ancef 1gm IV picker box operator for OR, orders repeated back to MD. Patient son here visiting, Efraín Espinal Jr. signed consent for surgery. Placed in chart.
--- NOTE | 2018-04-15 14:00 | NUR ---
patient remained anxious intermittently throughout day however redirectable no distress noted vitals remained stable. Patient confused and disoriented, continue to redirect for emotional support all needs attended to continue provide safe environment. call light within reach.
[2018-04-15 15:03] VITALS: BP 134/75
[2018-04-15 17:06] VITALS: BP 136/85
[2018-04-15] MEDS: MORPHINE SULFATE 4 MG/1 ML DISP.SYRIN IV PRN (18:21)
[2018-04-15] MEDS: ACETAMINOPHEN 325 MG TABLET PO PRN (19:52)
[2018-04-15] MEDS: QUETIAPINE FUMARATE 25 MG TABLET PO SCH (19:53)
[2018-04-15] MEDS: TAMSULOSIN HCL 0.4 MG CAP.SR.24H PO SCH (19:53)
[2018-04-15 20:02] VITALS: BP 153/88
--- NOTE | 2018-04-15 21:00 | NUR ---
Routine night meds given, patient tolerated crushed meds with apple sauce. Repositioned in bed. V-paced on the monitor.
[2018-04-16] VITALS (7 sets, daily range): BP systolic 106–142; BP diastolic 57–83
--- NOTE | 2018-04-16 | NUR ---
NPO for procedure in AM. IVF maintained.
[2018-04-16] MEDS: MORPHINE SULFATE 4 MG/1 ML DISP.SYRIN IV PRN ×2 (00:35→12:16)
[2018-04-16] MEDS: IV D5 1/2 NS 1000 ML 1,000 ML IV PRN ×2 (01:56→17:55)
[2018-04-16] MEDS: PANTOPRAZOLE SODIUM 40 MG TABLET.DR PO SCH (05:43)
[2018-04-16] MEDS ORDERED: CEFAZOLIN 1 G VIAL IV ONE (06:00)
[2018-04-16] MEDS ORDERED: CEFAZOLIN 1 G in PREMIXED 1 EACH IV ONE (06:00)
[2018-04-16] MEDS ORDERED: LIDOCAINE HCL 1% 20 ML VIAL ONE (07:06)
[2018-04-16] MEDS ORDERED: BACITRACIN 50,000 UNITS VIAL ONE (07:07)
[2018-04-16] MEDS ORDERED: IOHEXOL 300MG/ML 50 ML VIAL ONE (07:07)
--- NOTE | 2018-04-16 07:24 | NUR ---
ANCEF ENDORSED WITH OR STAFF FOR AICD REPLACEMENT
[2018-04-16 07:26] LABS: BASOPHILS # (AUTO) 0.1 K/uL (0.0-8.0); BASOPHILS % (AUTO) 0.3 % (0.0-2.0); EOSINOPHILS # (AUTO) 0.2 K/uL (0.0-0.7); EOSINOPHILS % (AUTO) 1.4 % (0.0-7.0); HEMOGLOBIN 11.1 g/dL (12.5-16.3); LYMPHOCYTES # (AUTO) 2.4 K/uL (20.0-40.0); LYMPHOCYTES % (AUTO) 14.7 % (20.5-51.5); MEAN CORPUSCULAR HEMOGLOBIN 28.4 uug (23.8-33.4); MEAN CORPUSCULAR HGB CONC 33 g/dL (32.5-36.3); MEAN CORPUSCULAR VOLUME 86.7 fL (73.0-96.2); MONOCYTES # (AUTO) 1.5 K/uL (2.0-10.0); MONOCYTES % (AUTO) 9.2 % (0.0-11.0); NEUTROPHILS # (AUTO) 12.4 K/uL (1.8-8.9); NEUTROPHILS % (AUTO) 74.4 % (38.5-71.5); PLATELET COUNT (AUTO) 279 K/uL (152-348); RED BLOOD CELL COUNT(AUTO) 3.92 MIL/uL (4.06-5.63); WHITE BLOOD COUNT (AUTO) 16.6 K/uL (3.6-10.2)
[2018-04-16 07:49] LABS: ALANINE AMINOTRANSFERASE 78 U/L (16-63); ALKALINE PHOSPHATASE 87 U/L (50-136); ASPARTATE AMINOTRANSFERASE 74 U/L (15-37); BILIRUBIN,TOTAL 0.7 mg/dL (0.2-1.0); CARBON DIOXIDE 28 mmol/L (21-32); CHLORIDE 101 mmol/L (98-107); CREATININE 0.7 mg/dL (0.6-1.3); GLUCOSE 132 mg/dL (74-106); MAGNESIUM 1.9 mg/dL (1.8-2.4); PHOSPHOROUS 2.7 mg/dL (2.5-4.9); POTASSIUM 4.5 mmol/L (3.5-5.1); TOTAL PROTEIN, SERUM 6.4 g/dL (6.4-8.2); UREA NITROGEN, BLOOD 15 mg/dL (7-18)
--- NOTE | 2018-04-16 09:38 | NUR ---
BACK FROM RECOVERY AWAKE ALERT NO SS OF PAIN OR DISTRESS, SR ON MONITOR CLOSELY MONITORED
[2018-04-16] MEDS: CHOLECALCIFEROL 1,000 UNIT TABLET PO SCH (09:48)
[2018-04-16] MEDS: DIVALPROEX 125 MG TABLET.DR PO SCH ×2 (09:48→20:27)
[2018-04-16] MEDS: LACTOBACILLUS RHAMNOSUS GG 1 EACH CAPSULE PO SCH ×2 (09:48→20:27)
[2018-04-16] MEDS: MEMANTINE HCL 10 MG TABLET PO SCH ×2 (09:48→16:49)
[2018-04-16] MEDS: LORAZEPAM 0.5 MG TABLET PO SCH ×2 (09:48→20:27)
[2018-04-16] MEDS: CARVEDILOL 6.25 MG TABLET PO SCH ×2 (09:49→16:49)
[2018-04-16] MEDS: Z GUARD REMEDY PASTE 57 GM TUBE TOP SCH ×2 (09:51→20:28)
--- NOTE | 2018-04-16 15:13 | NUR ---
PM CARE DONE WITH 2 PERSON ASSIST LEFT HEEL LESS REDDENED OFF LOADED WITH PILLOW
[2018-04-16] MEDS: CEFAZOLIN 1 G in PREMIXED 1 EACH IV SCH ×2 (16:02→23:36)
[2018-04-16] MEDS ORDERED: IRR NORMAL SALINE IRRIGATION 1,000 ML BOTTLE IR ONE (18:01)
[2018-04-16] MEDS ORDERED: PROPOFOL 200 MG/20 ML BOTTLE IV ONE (18:01)
[2018-04-16] MEDS ORDERED: IV LACTATED RINGERS SOLUTION 1,000 ML BAG IV ONE (18:01)
[2018-04-16] MEDS ORDERED: FUROSEMIDE 20 MG/2 ML VIAL IV ONE (18:30)
--- NOTE | 2018-04-16 19:45 | NUR ---
rounds made checked left chest post generator /battery changed open to air Dermabond intact no bleeding no hematoma noted .site clean dry .when asked patient if his in pain he said no . f/c to bsd with moderate orange color urine as per day RN she gave him Lasix .
[2018-04-16] MEDS: QUETIAPINE FUMARATE 25 MG TABLET PO SCH (20:27)
[2018-04-16] MEDS: TAMSULOSIN HCL 0.4 MG CAP.SR.24H PO SCH (20:27)
[2018-04-16] MEDS: ACETAMINOPHEN 325 MG TABLET PO PRN (21:27)
--- NOTE | 2018-04-16 21:27 | NUR ---
patient noted to be moaning and groaning medicated with Tylenol of pain .will continue to observed for pain .
--- NOTE | 2018-04-16 21:48 | NUR ---
due medication crused and given with applesauce patient tolerated ,aspiration precaution observed ,patient alert x1.verbal but confused .hob up aspiration precaution observed .
[2018-04-17] VITALS: BP 122/52
--- NOTE | 2018-04-17 00:15 | NUR ---
DUE ANTIBIOTIC ANCEF GIVEN VIA THE MIDLINE IVF ACCESS FLUSHED IV LINE .PATIENT IN BED ASLEEP ,NO S/S OF PAIN .NO RESPIRATORY DISTRESS NOTED BREATHING EVEN AND UNLABORED .
[2018-04-17 04:00] VITALS: BP 146/67
[2018-04-17] MEDS: PANTOPRAZOLE SODIUM 40 MG TABLET.DR PO SCH (06:26)
[2018-04-17 07:33] LABS: BASOPHILS # (AUTO) 0.1 K/uL (0.0-8.0); BASOPHILS % (AUTO) 0.5 % (0.0-2.0); EOSINOPHILS # (AUTO) 0.5 K/uL (0.0-0.7); EOSINOPHILS % (AUTO) 2.9 % (0.0-7.0); HEMATOCRIT 34.8 % (36.7-47.1); HEMOGLOBIN 11.5 g/dL (12.5-16.3); LYMPHOCYTES # (AUTO) 2.5 K/uL (20.0-40.0); LYMPHOCYTES % (AUTO) 15.9 % (20.5-51.5); MEAN CORPUSCULAR HGB CONC 33 g/dL (32.5-36.3); MEAN CORPUSCULAR VOLUME 87.7 fL (73.0-96.2); MONOCYTES # (AUTO) 1.5 K/uL (2.0-10.0); MONOCYTES % (AUTO) 9.7 % (0.0-11.0); NEUTROPHILS # (AUTO) 11.2 K/uL (1.8-8.9); PLATELET COUNT (AUTO) 263 K/uL (152-348); RED BLOOD CELL COUNT(AUTO) 3.97 MIL/uL (4.06-5.63); WHITE BLOOD COUNT (AUTO) 15.8 K/uL (3.6-10.2)
[2018-04-17 07:40] LABS: CARBON DIOXIDE 28 mmol/L (21-32); CHLORIDE 102 mmol/L (98-107); CREATININE 0.8 mg/dL (0.6-1.3); GLUCOSE 99 mg/dL (74-106); PHOSPHOROUS 3.4 mg/dL (2.5-4.9); POTASSIUM 4.3 mmol/L (3.5-5.1); UREA NITROGEN, BLOOD 15 mg/dL (7-18)
--- NOTE | 2018-04-17 08:00 | NUR ---
AWAKE ALERT BUR CONFUSED X3 NO SS OF PAIN OR DISTRESS. V-PACED ULSR ON MONITOR
[2018-04-17] MEDS: CHOLECALCIFEROL 1,000 UNIT TABLET PO SCH (08:33)
[2018-04-17] MEDS: LACTOBACILLUS RHAMNOSUS GG 1 EACH CAPSULE PO SCH (08:33)
[2018-04-17] MEDS: LORAZEPAM 0.5 MG TABLET PO SCH (08:33)
[2018-04-17] MEDS: DIVALPROEX 125 MG TABLET.DR PO SCH (08:33)
[2018-04-17] MEDS: MEMANTINE HCL 10 MG TABLET PO SCH ×2 (08:33→17:25)
[2018-04-17] MEDS: CARVEDILOL 6.25 MG TABLET PO SCH ×2 (08:34→17:25)
[2018-04-17] MEDS: Z GUARD REMEDY PASTE 57 GM TUBE TOP SCH (08:34)
[2018-04-17 11:20] VITALS: BP 138/75
[2018-04-17] MEDS ORDERED: LEVO500T2 PO (13:28)
--- NOTE | 2018-04-17 13:30 | NUR ---
SEEN BY HOSPITALIST WITH ORDER FOR DC TO SNF. SHEET [employer]AL [employer]OP FOREMAN MADE AWARE SPOKE WITH DAUGHTER AND SNF SUPERVISOR REAL ESTATE OFFICE FOR NEED OF BED
[2018-04-17] MEDS ORDERED: LEVOFLOXACIN 750 MG TABLET PO ONE (13:52)
[2018-04-17] MEDS ORDERED: FUROSEMIDE 20 MG/2 ML VIAL IV ONE (15:00)
[2018-04-17 15:12] VITALS: BP 123/75
[2018-04-17 17:25] VITALS: BP 120/72
--- NOTE | 2018-04-17 17:39 | NUR ---
DISCHARGED TO [facility] VIA AMBULANCE STABLE NO SS OF PAIN OR DISTRESS. REPORT GIVEN TO STAFF
== END 2018-04-17 18:02 | DRG 981 ==
LOC: ER 21:18 → TELE 23:04
PROVIDERS: ADMIT Internal Medicine; ATTEND Internal Medicine
PROC: 0JH609Z Insertion of Cardiac Resynchronization Defibrillator Pulse Generator into Chest Subcutaneous Tissue and Fascia, Open Approach (ICD-10-PCS; 2018-04-16)
PROC: 0JPT0PZ Removal of Cardiac Rhythm Related Device from Trunk Subcutaneous Tissue and Fascia, Open Approach (ICD-10-PCS; principal; 2018-04-16 07:43)
DX: N17.0 Acute kidney failure with tubular necrosis (principal); E43 Unspecified severe protein-calorie malnutrition; I50.33 Acute on chronic diastolic (congestive) heart failure; I21.A1 Myocardial infarction type 2; J69.0 Pneumonitis due to inhalation of food and vomit; G93.41 Metabolic encephalopathy; N39.0 Urinary tract infection, site not specified; T82.111A Breakdown (mechanical) of cardiac pulse generator (battery), initial encounter; D68.59 Other primary thrombophilia; E86.0 Dehydration; R62.7 Adult failure to thrive; M80.052D Age-related osteoporosis with current pathological fracture, left femur, subsequent encounter for fracture with routine healing; Z68.28 Body mass index [BMI] 28.0-28.9, adult; I11.0 Hypertensive heart disease with heart failure; L89.629 Pressure ulcer of left heel, unspecified stage; G30.9 Alzheimer's disease, unspecified; F02.80 Dementia in other diseases classified elsewhere, unspecified severity, without behavioral disturbance, psychotic disturbance, mood disturbance, and anxiety; N40.0 Benign prostatic hyperplasia without lower urinary tract symptoms; Z91.81 History of falling; Z87.891 Personal history of nicotine dependence; R13.10 Dysphagia, unspecified; K80.20 Calculus of gallbladder without cholecystitis without obstruction; F31.9 Bipolar disorder, unspecified; Z74.09 Other reduced mobility; Z86.73 Personal history of transient ischemic attack (TIA), and cerebral infarction without residual deficits; Z95.810 Presence of automatic (implantable) cardiac defibrillator; D64.9 Anemia, unspecified; F01.50 Vascular dementia, unspecified severity, without behavioral disturbance, psychotic disturbance, mood disturbance, and anxiety; H05.51 Retained (old) foreign body following penetrating wound of right orbit
CPT/HCPCS: 36415; 70030-TC; 70450; 71045; 83690; 83735; 84100; 84153; 84443; 85025; 85610; 85730; 87086; 92523; 92526; 92610; 93005; 97110; 97530; A4217; A4649; A4663; C1769; C9113; G0378; J0690; J0696; J1650; J1940; J2270; J3490; J7040; J7060; J7120; Q9967

== ENCOUNTER 2018-06-27 13:20 | Inpatient (IN) | payer MEDICARE, MEDICAID ==
[~2018-06-27] VITALS: Ht 160 cm; Wt 59.0 kg
[~2018-06-27 13:20] MED LIST changes: +BISA10SU12 RC; +ENOX40DI SQ; +HYDR-3326 PO; +LEVO500T2 PO; +MAGN400O6 PO; -METO25TA6 PO; -NYST15CR TOP
--- NOTE | 2018-06-27 13:35 | NUR ---
Dr Price at the bedside for MSE.
[2018-06-27] MEDS ORDERED: FURO20TA4 PO (13:44)
[2018-06-27] MEDS ORDERED: IV NORMAL SALINE 1000 ML BAG IV ONE ×2 (13:45→14:15)
[2018-06-27 13:46] LABS: BASOPHILS # (AUTO) 0.2 K/uL (0.0-8.0); BASOPHILS % (AUTO) 0.7 % (0.0-2.0); EOSINOPHILS # (AUTO) 0.1 K/uL (0.0-0.7); EOSINOPHILS % (AUTO) 0.5 % (0.0-7.0); HEMATOCRIT 36.9 % (36.7-47.1); HEMOGLOBIN 11.7 g/dL (12.5-16.3); LYMPHOCYTES # (AUTO) 2.3 K/uL (20.0-40.0); LYMPHOCYTES % (AUTO) 9.7 % (20.5-51.5); MEAN CORPUSCULAR HGB CONC 32 g/dL (32.5-36.3); MEAN CORPUSCULAR VOLUME 84.9 fL (73.0-96.2); MONOCYTES # (AUTO) 1.9 K/uL (2.0-10.0); MONOCYTES % (AUTO) 7.9 % (0.0-11.0); NEUTROPHILS # (AUTO) 19.3 K/uL (1.8-8.9); NEUTROPHILS % (AUTO) 81.2 % (38.5-71.5); PLATELET COUNT (AUTO) 376 K/uL (152-348); RED BLOOD CELL COUNT(AUTO) 4.34 MIL/uL (4.06-5.63); WHITE BLOOD COUNT (AUTO) 23.8 K/uL (3.6-10.2)
[2018-06-27 13:49] LABS: *BILIRUBIN,URIN NEGATIVE (NEGATIVE); *BLOOD, URINE Trace-intact (NEGATIVE); *CLARITY,URINE CLEAR (CLEAR); *COLOR,URINE YELLOW (YELLOW); *KETONES,URINE NEGATIVE (NEGATIVE); LEUKOCYTE ESTERASE ,URINE 1+ (NEGATIVE); NITRITE, URINE POSITIVE (NEGATIVE); UGLUCOSE NEGATIVE (NEGATIVE)
[2018-06-27 13:50] LABS: CARBON DIOXIDE 29 mmol/L (21-32); CHLORIDE 104 mmol/L (98-107); CREATININE 0.7 mg/dL (0.6-1.3); GLUCOSE 119 mg/dL (74-106); POTASSIUM 4.6 mmol/L (3.5-5.1); UREA NITROGEN, BLOOD 25 mg/dL (7-18)
[2018-06-27 13:53] LABS: BACTERIA,URINE MODERATE /HPF (NONE SEEN); RBC,URINE 0-3 /HPF (0-3); SQUAMOUS EPITHELIAL CELL,UR FEW /HPF (NONE SEEN); WBC,URINE 80-100 /HPF (0-3)
[2018-06-27 13:56] LABS: ALANINE AMINOTRANSFERASE 18 U/L (16-63); ALKALINE PHOSPHATASE 81 U/L (50-136); ASPARTATE AMINOTRANSFERASE 17 U/L (15-37); BILIRUBIN,DIRECT 0.1 mg/dL (0.0-0.2); BILIRUBIN,TOTAL 0.3 mg/dL (0.2-1.0); LIPASE 96 U/L (73-393); TOTAL PROTEIN, SERUM 7.7 g/dL (6.4-8.2)
--- NOTE | 2018-06-27 14:02 | NUR ---
Pt has Elan heel, open sore. Dressing and wound w/ foul smell, and dressing stuck to the wound. Cleaned the wound and applied new, clean dressing. Pt tolorated well.
[2018-06-27] MEDS ORDERED: PIPERACILLIN SODIUM/TAZOBACTAM 3.375 G in IV DEXTROSE 5% 50 ML IV ONE (14:15)
[2018-06-27] MEDS ORDERED: VANCOMYCIN IV 1,000 MG in IV DEXTROSE 5% 250 ML IV ONE (14:15)
[2018-06-27] MEDS ORDERED: VANCOMYCIN IV 200 ML ONE (14:18)
[2018-06-27] MEDS ORDERED: PIPERACILLIN/TAZOBACTAM/D5W 50 ML IV ONE (14:18)
[2018-06-27 16:00] VITALS: BP 109/47
[2018-06-27] MEDS ORDERED: ONDANSETRON 4 MG/2 ML VIAL IV PRN (19:15)
--- NOTE | 2018-06-27 19:20 | NUR ---
RECEIVED PT AWAKE ON BED. PT SHOWS NO SIGNS OF ACUTE DISTRESS. IV INTACT. SAFETY AND COMFORT PROVIDED. WILL CONTINUE TO MONITOR.
[2018-06-27 20:00] VITALS: BP 135/67
[2018-06-27] MEDS: CEFTRIAXONE 1 G in IV DEXTROSE 5% 50 ML IV SCH (20:03)
[2018-06-27] MEDS: IV D5/ 0.9% NACL 1,000 ML IV PRN (20:04)
[2018-06-27] MEDS: MORPHINE SULFATE 2 MG/1 ML DISP.SYRIN IV PRN (20:05)
[2018-06-27] MEDS: ACETAMINOPHEN 650 MG SUPP.RECT RC PRN (23:19)
[2018-06-28 00:06] VITALS: BP 152/74
[2018-06-28] MEDS: MORPHINE SULFATE 2 MG/1 ML DISP.SYRIN IV PRN ×3 (01:09→20:32)
[2018-06-28 04:00] VITALS: BP 139/75
[2018-06-28] MEDS: ACETAMINOPHEN 650 MG SUPP.RECT RC PRN (05:41)
--- NOTE | 2018-06-28 06:54 | NUR ---
PT SLEPT INTERMITTENTLY. PT SHOWS NO SIGNS OF DISTRESS.PT GIVEN MORPHINE AT 2005, 0109H, 0540H FOR PAIN SCALE OF SEVERE PAIN ON THE BACK.PT ALSO GIVEN TYLENOL TWICE PT TOLERATED IT WELL. IV INTACT. PT KEEP ON YELLING NURSE BUT WHEN YOU ANSWER HIM HE WILL SAID NOTHING. PT CONFUSE NEED REORIENTATION.PRESCRIBED MEDICATION GIVEN AND PT TOLERATED IT WELL. PT TURNED AND REPOSITIONED.SAFETY AND COMFORT PROVIDED. ALL NEEDS ARE MET. WILL ENDORSE ACCORDINGLY TO INCOMING NURSE FOR CONTINUITY OF CARE.
[2018-06-28 07:22] LABS: BASOPHILS # (AUTO) 0.1 K/uL (0.0-8.0); BASOPHILS % (AUTO) 0.5 % (0.0-2.0); EOSINOPHILS # (AUTO) 0.1 K/uL (0.0-0.7); EOSINOPHILS % (AUTO) 0.5 % (0.0-7.0); HEMATOCRIT 34.8 % (36.7-47.1); HEMOGLOBIN 11.1 g/dL (12.5-16.3); LYMPHOCYTES # (AUTO) 2.3 K/uL (20.0-40.0); LYMPHOCYTES % (AUTO) 10.7 % (20.5-51.5); MEAN CORPUSCULAR HEMOGLOBIN 27.2 uug (23.8-33.4); MEAN CORPUSCULAR HGB CONC 32 g/dL (32.5-36.3); MEAN CORPUSCULAR VOLUME 84.7 fL (73.0-96.2); MONOCYTES # (AUTO) 1.6 K/uL (2.0-10.0); MONOCYTES % (AUTO) 7.7 % (0.0-11.0); NEUTROPHILS # (AUTO) 17.3 K/uL (1.8-8.9); NEUTROPHILS % (AUTO) 80.6 % (38.5-71.5); PLATELET COUNT (AUTO) 376 K/uL (152-348); WHITE BLOOD COUNT (AUTO) 21.5 K/uL (3.6-10.2)
[2018-06-28 07:51] LABS: BAND % (MANUAL) 1 % (0-10); LYMPHOCYTES % (MANUAL) 10 % (20-40); MONOCYTES % (MANUAL) 7 % (2-10); NEUTROPHILS % (MANUAL) 82 % (42-75)
[2018-06-28 07:52] LABS: ALANINE AMINOTRANSFERASE 13 U/L (16-63); ALKALINE PHOSPHATASE 69 U/L (50-136); ASPARTATE AMINOTRANSFERASE 18 U/L (15-37); BILIRUBIN,TOTAL 0.3 mg/dL (0.2-1.0); CARBON DIOXIDE 29 mmol/L (21-32); CHLORIDE 108 mmol/L (98-107); CREATININE 0.7 mg/dL (0.6-1.3); GLUCOSE 112 mg/dL (74-106); PHOSPHOROUS 3.3 mg/dL (2.5-4.9); POTASSIUM 4.4 mmol/L (3.5-5.1); TOTAL PROTEIN, SERUM 7.2 g/dL (6.4-8.2); UREA NITROGEN, BLOOD 19 mg/dL (7-18)
[2018-06-28] MEDS: PANTOPRAZOLE SODIUM 40 MG VIAL IV SCH (09:00)
[2018-06-28 11:45] VITALS: BP 132/68
--- NOTE | 2018-06-28 12:26 | NUR ---
WOUND CARE CONSULT: PT PRESENTS WITH WOUNDS ON BILATERAL HEELS, SCARRING TO MIDBACK, LEFT HIP AND SACRAL AREAS, PRESENT ON ADMISSION. PT IS IMMOBILE. RECOMMEND DPM CONSULT. FIRST STEP LOW AIRLOSS MATTRESS ORDERED. ALL SKIN PROTECTION RECOMMENDATIONS DISCUSSED WITH NURSING STAFF. DEFER TO DPM FOR LOWER EXTREMITIES WILL SEE PRN. SPENCER IN AGREEMENT WITH PLAN OF CARE. Addendum: 06/28/18 at 1228 by MIGUEL A HANNA RN Amended: Links added.
[2018-06-28] MEDS ORDERED: Z GUARD REMEDY PASTE 57 GM TUBE TOP PRN (12:30)
[2018-06-28 15:46] VITALS: BP 138/83
[2018-06-28] MEDS: ACETAMINOPHEN 325 MG TABLET PO PRN (18:09)
[2018-06-28] MEDS: IV D5/ 0.9% NACL 1,000 ML IV PRN (18:15)
[2018-06-28] MEDS: CEFTRIAXONE 1 G in IV DEXTROSE 5% 50 ML IV SCH (19:23)
[2018-06-28 21:16] VITALS: BP 118/68
[2018-06-28] MEDS: Z GUARD REMEDY PASTE 57 GM TUBE TOP SCH (21:51)
--- NOTE | 2018-06-28 23:30 | NUR ---
Received patient awake, moaning on & off. Sensitive to touch. Noted leaking & infiltrated IV site. IVF held for now, old line removed. Inserted new line on right upper arm [id number] then IVF D5NS at 60 ml/hr resumed. Morphine 1 mg IVP adm for pain. Sponge bath performed, wound treatment to bilateral heel done. Cleansed w/ NS, hydrogel applied, covered with Mepilex & secured dressing with Kerlix. Kept bilateral foot elevated on pillows. Afebrile.
[2018-06-29] MEDS: MORPHINE SULFATE 2 MG/1 ML DISP.SYRIN IV PRN ×3 (00:36→21:41)
[2018-06-29 04:57] VITALS: BP 126/68
[2018-06-29 06:41] LABS: BASOPHILS # (AUTO) 0.1 K/uL (0.0-8.0); BASOPHILS % (AUTO) 0.5 % (0.0-2.0); EOSINOPHILS # (AUTO) 0.1 K/uL (0.0-0.7); EOSINOPHILS % (AUTO) 0.6 % (0.0-7.0); HEMATOCRIT 32.5 % (36.7-47.1); HEMOGLOBIN 10.5 g/dL (12.5-16.3); LYMPHOCYTES # (AUTO) 2.7 K/uL (20.0-40.0); LYMPHOCYTES % (AUTO) 13.4 % (20.5-51.5); MEAN CORPUSCULAR HEMOGLOBIN 27.4 uug (23.8-33.4); MEAN CORPUSCULAR HGB CONC 32 g/dL (32.5-36.3); MEAN CORPUSCULAR VOLUME 84.9 fL (73.0-96.2); MONOCYTES # (AUTO) 1.4 K/uL (2.0-10.0); NEUTROPHILS % (AUTO) 78.5 % (38.5-71.5); PLATELET COUNT (AUTO) 340 K/uL (152-348); RED BLOOD CELL COUNT(AUTO) 3.83 MIL/uL (4.06-5.63); WHITE BLOOD COUNT (AUTO) 20.4 K/uL (3.6-10.2)
[2018-06-29] MEDS: PANTOPRAZOLE SODIUM 40 MG VIAL IV SCH (06:45)
[2018-06-29 07:04] LABS: ALANINE AMINOTRANSFERASE 9 U/L (16-63); ALKALINE PHOSPHATASE 57 U/L (50-136); ASPARTATE AMINOTRANSFERASE 19 U/L (15-37); BILIRUBIN,TOTAL 0.2 mg/dL (0.2-1.0); CARBON DIOXIDE 29 mmol/L (21-32); CHLORIDE 109 mmol/L (98-107); CREATININE 0.5 mg/dL (0.6-1.3); GLUCOSE 112 mg/dL (74-106); MAGNESIUM 1.8 mg/dL (1.8-2.4); PHOSPHOROUS 2.8 mg/dL (2.5-4.9); POTASSIUM 4.2 mmol/L (3.5-5.1); TOTAL PROTEIN, SERUM 6.5 g/dL (6.4-8.2); UREA NITROGEN, BLOOD 18 mg/dL (7-18)
--- NOTE | 2018-06-29 07:18 | NUR ---
Current Albumin level 1.4 g/dl. Report given to Fany KWOK.
[2018-06-29] MEDS: Z GUARD REMEDY PASTE 57 GM TUBE TOP SCH ×2 (08:21→21:42)
--- NOTE | 2018-06-29 09:00 | NUR ---
PATIENT IS AWAKE ALERT WITH CONFUSSION AND DISORIENTATION YELLING OUT UNABLE TO RELATE NEEDS ALL NEEDS ANTICIPATED AND SATISFIED.REQUIRES MAX ASSIST FOR ALL ADL.TURNED AND REPOSITIONED QU2 ON FIRST STEP MATTRASS FOR COMFORT AND PROPER BODY ALLIGNMENT.REMAIN ON IVF ORDERED WITH NO S/S OF INFILTERATION AT THIS TIME MADE COMFORTABLE AND WILL CONTINUE TO OBSERVE.
--- NOTE | 2018-06-29 09:45 | NUR ---
GETTING LOUDER UNSBLE TO REDIRECT MEDICATED WITH MORPHINE AND REPOSITIONED FOR COMFORT.
[2018-06-29 11:18] VITALS: BP 118/66
[2018-06-29 11:30] VITALS: BP 118/66
[2018-06-29] MEDS: IV D5/ 0.9% NACL 1,000 ML IV PRN (13:48)
[2018-06-29 14:56] VITALS: BP 144/76
[2018-06-29] MEDS: PROTEIN SUPPLEMENT (PROSTAT) 30 ML LIQUID PO SCH (17:16)
--- NOTE | 2018-06-29 17:59 | NUR ---
CALLED RADIOLOGY TO CHECK ON THE STAT CHEST XRAY REPORT THAT WAS ORDERED STAT THIS AFTERNOON BY DR HEDRICK SPOKE WITH XIAO STATED DID NOT KNOW ABOUT THIS TEST BUT WILL CHECK INTO IT.
--- NOTE | 2018-06-29 20:00 | NUR ---
RESULT OF THE XRAY RECEIVED . AWARE OF THE RESULT
[2018-06-29 20:52] VITALS: BP 127/71
[2018-06-29] MEDS: CEFTRIAXONE 1 G in IV DEXTROSE 5% 50 ML IV SCH (21:41)
[2018-06-30 00:24] VITALS: BP 132/76
[2018-06-30] MEDS ORDERED: LORAZEPAM 2 MG/1 ML VIAL IV PRN (01:15)
[2018-06-30 05:45] VITALS: BP 144/86
--- NOTE | 2018-06-30 05:50 | NUR ---
PATIENT AWAKE MOST OF THE NIGHT .MEDICATION ADMINISTERED FRO RESTLESSNESS AND SCREAMING. PATIENT RESTING COMFORTABLY AT THIS TIME. V PACING ON THE MONITOR WITH BUNDLE BRANCH WILL CONTINUE TO MONITOR
[2018-06-30 06:43] LABS: BASOPHILS % (AUTO) 0.2 % (0.0-2.0); EOSINOPHILS # (AUTO) 0.3 K/uL (0.0-0.7); EOSINOPHILS % (AUTO) 2.1 % (0.0-7.0); HEMATOCRIT 31.5 % (36.7-47.1); HEMOGLOBIN 10.3 g/dL (12.5-16.3); LYMPHOCYTES # (AUTO) 2.3 K/uL (20.0-40.0); LYMPHOCYTES % (AUTO) 17.3 % (20.5-51.5); MEAN CORPUSCULAR HGB CONC 33 g/dL (32.5-36.3); MEAN CORPUSCULAR VOLUME 85.8 fL (73.0-96.2); MONOCYTES # (AUTO) 1.2 K/uL (2.0-10.0); MONOCYTES % (AUTO) 8.9 % (0.0-11.0); NEUTROPHILS # (AUTO) 9.6 K/uL (1.8-8.9); NEUTROPHILS % (AUTO) 71.5 % (38.5-71.5); PLATELET COUNT (AUTO) 323 K/uL (152-348); RED BLOOD CELL COUNT(AUTO) 3.67 MIL/uL (4.06-5.63); WHITE BLOOD COUNT (AUTO) 13.5 K/uL (3.6-10.2)
[2018-06-30 07:03] LABS: CARBON DIOXIDE 30 mmol/L (21-32); CHLORIDE 106 mmol/L (98-107); CREATININE 0.6 mg/dL (0.6-1.3); GLUCOSE 92 mg/dL (74-106); MAGNESIUM 1.8 mg/dL (1.8-2.4); PHOSPHOROUS 3.1 mg/dL (2.5-4.9); POTASSIUM 4.4 mmol/L (3.5-5.1); UREA NITROGEN, BLOOD 13 mg/dL (7-18)
[2018-06-30] MEDS: PANTOPRAZOLE SODIUM 40 MG VIAL IV SCH (08:10)
[2018-06-30] MEDS: Z GUARD REMEDY PASTE 57 GM TUBE TOP SCH ×2 (08:10→20:48)
[2018-06-30] MEDS: PROTEIN SUPPLEMENT (PROSTAT) 30 ML LIQUID PO SCH ×3 (08:11→17:19)
--- NOTE | 2018-06-30 08:30 | NUR ---
PATIENT IS AWAKE ALERT AND AWARE DENIES PAIN OR DISCOMFORTS AT THIS TIME CALL LIGHTS AND PERSONAL BELONGINGS PLACED WITHIN EASY REACH WILL CONTINUE TO OBSERVE. Addendum: 06/30/18 at 1515 by TRENTON LUO RN ERROR WRONG PATIENT
[2018-06-30] MEDS: IV D5/ 0.9% NACL 1,000 ML IV PRN (09:00)
--- NOTE | 2018-06-30 09:00 | NUR ---
IN BED AWAKE ALERT TO SELF YELLS OUT OCCASIONALLY DENIES ANY NEEDS WHEN ASKED ALL NEED ANTICIPATED AND SATISFIED.TURNED AND REPOSITIONED Q2H WITH TX IN PROGRESS ORDERED MADE COMFORTABLE.SLT HERE TO SEE PATIENT FOR SWALLOW EVALUATION.
[2018-06-30 12:04] VITALS: BP 146/89
--- NOTE | 2018-06-30 12:51 | NUR ---
RESTING IN BED DENIES DISCOMFORTS COMPLIANT WITH MEDICATIONS AND CARE WILL CONTINUE TO OBSERVE AND PROVIDE SAFE AND THERAPEUTIC ENVIRONMENT AT ALL TIMES. Addendum: 06/30/18 at 1515 by TRENTON LUO RN ERROR WRONG PATIENT
--- NOTE | 2018-06-30 13:00 | NUR ---
PATIENTS DAUGHTER JULIANNA HERE AT THE BEDSIDE AND ASSISTED PATIENT WITH EATING HIS LUNCH HE IS AWAKE ALERT TO SELF WITH CONFUSSION AND DISORIENTATION AT THIS TIME ALL NEEDS ANTICIPATED AND SATISFIED.
[2018-06-30 16:15] VITALS: BP 125/73
--- NOTE | 2018-06-30 20:00 | NUR ---
PATIENT AWAKE IN BED AAOX1 WITH CONFUSION. NO S/S OF PAIN OR ACUTE DISTRESS ON ASSESSMENT. SAFETY MEASURES IN [place], CALL LIGHT LEFT WITHIN PATIENT'S REACH
[2018-06-30 20:22] VITALS: BP 129/70
[2018-06-30] MEDS: CEFTRIAXONE 1 G in IV DEXTROSE 5% 50 ML IV SCH (20:48)
[2018-06-30] MEDS: MORPHINE SULFATE 2 MG/1 ML DISP.SYRIN IV PRN (20:49)
[2018-07-01 00:54] VITALS: BP 130/62
[2018-07-01 04:00] VITALS: BP 148/87
[2018-07-01] MEDS: ACETAMINOPHEN 325 MG TABLET PO PRN (05:32)
[2018-07-01] MEDS: IV D5/ 0.9% NACL 1,000 ML IV PRN (05:46)
--- NOTE | 2018-07-01 06:11 | NUR ---
AWAKE IN BED, PAIN MEDS GIVEN WITH EFFECT, PATIENT CONTINUES TO BE CONFUSED SCREAMING AND YELLING AT TIMES. SAFETY AND COMFORT MEASURES MAINTAINED AT ALL TIMES
[2018-07-01] MEDS ORDERED: PANTOPRAZOLE SODIUM 40 MG TABLET.DR PO SCH (07:00)
[2018-07-01] MEDS: Z GUARD REMEDY PASTE 57 GM TUBE TOP SCH ×2 (08:21→20:30)
[2018-07-01] MEDS: PROTEIN SUPPLEMENT (PROSTAT) 30 ML LIQUID PO SCH ×3 (08:21→17:00)
[2018-07-01 08:34] VITALS: BP 143/80
[2018-07-01 11:32] VITALS: BP 151/90
[2018-07-01] MEDS: CARVEDILOL 6.25 MG TABLET PO SCH ×2 (15:45→20:30)
[2018-07-01 15:59] VITALS: BP 141/86
[2018-07-01] MEDS ORDERED: MENT71OI TOP ×2 (17:42)
[2018-07-01] MEDS ORDERED: LEVO500T2 PO (17:42)
[2018-07-01] MEDS ORDERED: PROT30LI PO (17:42)
[2018-07-01] MEDS ORDERED: CARV6.252 PO (17:42)
--- NOTE | 2018-07-01 19:20 | NUR ---
Received patient lying in bed. Patient AAOX1 only. Mainly confused and disoriented. On o2 at 3LPM via NC in place. O2 sat at 96%. In no acute distress. IV site on right upper arm intact and patent. IVF infusing. Enrique catheter intact and draining via gravity. Patient awaiting to be discharge to [facility]. Safety measure initiated and call tsai within reach.
--- NOTE | 2018-07-01 21:15 | NUR ---
Patient remains AAOX1 only. Mainly confused and disoriented. On O2 at 3LPM via NC in place. In no acute distress. VS WNL. IV site discontinued and name tag removed. forest fire specialist supervisor by 2 paramedics via erika in an ambulance to be discharge to [facility].
[2018-07-01 21:26] VITALS: BP 136/81
== END 2018-07-01 21:15 | DRG 871 ==
LOC: ER 13:20 → TELE3 15:44 → MEDSURG3 07-01 15:20
PROVIDERS: ADMIT Internal Medicine; ATTEND Internal Medicine
DX: A41.9 Sepsis, unspecified organism (principal); J69.0 Pneumonitis due to inhalation of food and vomit; L89.613 Pressure ulcer of right heel, stage 3; L89.623 Pressure ulcer of left heel, stage 3; G92 Toxic encephalopathy; E43 Unspecified severe protein-calorie malnutrition; R53.2 Functional quadriplegia; I50.33 Acute on chronic diastolic (congestive) heart failure; N39.0 Urinary tract infection, site not specified; I45.2 Bifascicular block; B96.20 Unspecified Escherichia coli [E. coli] as the cause of diseases classified elsewhere; R80.9 Proteinuria, unspecified; R62.7 Adult failure to thrive; N40.0 Benign prostatic hyperplasia without lower urinary tract symptoms; M80.052D Age-related osteoporosis with current pathological fracture, left femur, subsequent encounter for fracture with routine healing; I11.0 Hypertensive heart disease with heart failure; G30.9 Alzheimer's disease, unspecified; F02.80 Dementia in other diseases classified elsewhere, unspecified severity, without behavioral disturbance, psychotic disturbance, mood disturbance, and anxiety; Z91.81 History of falling; Z86.73 Personal history of transient ischemic attack (TIA), and cerebral infarction without residual deficits; F01.50 Vascular dementia, unspecified severity, without behavioral disturbance, psychotic disturbance, mood disturbance, and anxiety; F31.9 Bipolar disorder, unspecified; Z87.440 Personal history of urinary (tract) infections; Z68.23 Body mass index [BMI] 23.0-23.9, adult; Z87.891 Personal history of nicotine dependence; Z95.810 Presence of automatic (implantable) cardiac defibrillator; Z79.899 Other long term (current) drug therapy; F41.9 Anxiety disorder, unspecified; F20.9 Schizophrenia, unspecified; D69.2 Other nonthrombocytopenic purpura
CPT/HCPCS: 36415; 70030-TC; 71045; 83605; 83690; 83735; 84100; 85025; 85730; 87040; 87077; 87086; 92526; 92610; 93005; 97110; 97530; A4663; C9113; G0378; J0696; J2060; J2270; J2405; J2543; J3370; J7030; J7042; J7060

== ENCOUNTER 2018-09-25 16:46 | Inpatient (IN) | payer MEDICARE, MEDICAID ==
[~2018-09-25] VITALS: Ht 167.6 cm; Wt 69.4 kg
[~2018-09-25 16:46] MED LIST changes: -BISA10SU12 RC; -ENOX40DI SQ; +FURO20TA4 PO; -HYDR-3326 PO; -LORA-258 PO; -MAGN400O6 PO; +MENT71OI TOP; +PROT30LI PO; -QUET25TA PO; -TAMS-3 PO
--- NOTE | 2018-09-25 17:25 | NUR ---
PT IS IN ROOM #2A. DR ROTH EVALUATED THE PT.
[2018-09-25 17:27] LABS: BASOPHILS # (AUTO) 0.1 K/uL (0.0-8.0); BASOPHILS % (AUTO) 0.9 % (0.0-2.0); EOSINOPHILS # (AUTO) 0.2 K/uL (0.0-0.7); EOSINOPHILS % (AUTO) 2.2 % (0.0-7.0); HEMATOCRIT 39.5 % (36.7-47.1); HEMOGLOBIN 13.2 g/dL (12.5-16.3); LYMPHOCYTES # (AUTO) 2.4 K/uL (20.0-40.0); LYMPHOCYTES % (AUTO) 23.5 % (20.5-51.5); MEAN CORPUSCULAR HGB CONC 33 g/dL (32.5-36.3); MONOCYTES # (AUTO) 1.2 K/uL (2.0-10.0); NEUTROPHILS # (AUTO) 6.3 K/uL (1.8-8.9); NEUTROPHILS % (AUTO) 61.4 % (38.5-71.5); PLATELET COUNT (AUTO) 170 K/uL (152-348); RED BLOOD CELL COUNT(AUTO) 4.54 MIL/uL (4.06-5.63); WHITE BLOOD COUNT (AUTO) 10.3 K/uL (3.6-10.2)
[2018-09-25 17:34] LABS: CARBON DIOXIDE 28 mmol/L (21-32); CHLORIDE 100 mmol/L (98-107); CREATININE 0.7 mg/dL (0.6-1.3); GLUCOSE 111 mg/dL (74-106); POTASSIUM 4.9 mmol/L (3.5-5.1); UREA NITROGEN, BLOOD 19 mg/dL (7-18)
[2018-09-25 17:39] LABS: *BLOOD, URINE 3+ (NEGATIVE); *CLARITY,URINE TURBID (CLEAR); *COLOR,URINE RED (YELLOW); *KETONES,URINE 2+ (NEGATIVE); *UROBILINOGEN,URINE >=8.0 E.U./dl (NORMAL); LEUKOCYTE ESTERASE ,URINE 3+ (NEGATIVE); NITRITE, URINE NEGATIVE (NEGATIVE); PH,URINE 8.5 (5.0-8.0); UGLUCOSE TRACE (NEGATIVE)
[2018-09-25 17:40] LABS: ALANINE AMINOTRANSFERASE 83 U/L (16-63); ALKALINE PHOSPHATASE 100 U/L (50-136); ASPARTATE AMINOTRANSFERASE 63 U/L (15-37); BILIRUBIN,DIRECT 0.1 mg/dL (0.0-0.2); BILIRUBIN,TOTAL 0.5 mg/dL (0.2-1.0); TOTAL PROTEIN, SERUM 7.1 g/dL (6.4-8.2)
[2018-09-25 17:40] LABS: *BILIRUBIN,URIN 3+ (NEGATIVE)
[2018-09-25 17:46] LABS: BACTERIA,URINE FEW /HPF (NONE SEEN); RBC,URINE TNTC /HPF (0-3); SQUAMOUS EPITHELIAL CELL,UR NONE SEEN /HPF (NONE SEEN); WBC,URINE TNTC /HPF (0-3)
[2018-09-25] MEDS ORDERED: ONDANSETRON 4 MG/2 ML VIAL IV PRN (18:15)
[2018-09-25] MEDS ORDERED: Z GUARD REMEDY PASTE 57 GM TUBE TOP PRN (18:15)
[2018-09-25] MEDS ORDERED: ACETAMINOPHEN 325 MG TABLET PO PRN ×2 (18:15)
[2018-09-25] MEDS ORDERED: MAGNESIUM HYDROXIDE 30 ML LIQUID UDC PO PRN (18:15)
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
--- NOTE | 2018-09-25 19:45 | NUR ---
Report given to Sid KWOKjingle writer
[2018-09-25 20:11] VITALS: BP 131/77
[2018-09-25] MEDS: DIVALPROEX 125 MG TABLET.DR PO SCH ×2 (21:00→21:41)
[2018-09-25] MEDS: CARVEDILOL 6.25 MG TABLET PO SCH (21:00)
[2018-09-25] MEDS: CULTURELLE CAPSULE PO SCH ×2 (21:00→21:41)
[2018-09-25] MEDS: DOCUSATE SODIUM 100 MG CAPSULE PO SCH (21:41)
[2018-09-25] MEDS: IV D5 1/2 NS 1000 ML 1,000 ML IV PRN (22:21)
[2018-09-25] MEDS ORDERED: LORAZEPAM 0.5 MG TABLET PO PRN (22:45)
[2018-09-25] MEDS: LORAZEPAM 2 MG/1 ML VIAL IV PRN (23:18)
[2018-09-26] VITALS: BP 98/52
[2018-09-26 04:00] VITALS: BP 107/72
[2018-09-26] MEDS: PANTOPRAZOLE SODIUM 40 MG TABLET.DR PO SCH (06:04)
--- NOTE | 2018-09-26 06:40 | NUR ---
report received from ER nurse. pt came from [facility]. pt admitted for gross hematuria. skin check done. pictures taken and placed in chart. vitals checked and stable. called md for pt showing agitation and shouting. pt given ativan. offloaded heels and turned off lights to promote sleep. will continue to monitor.
[2018-09-26] MEDS ORDERED: PANTOPRAZOLE SODIUM 40 MG TABLET.DR PO SCH (07:00)
[2018-09-26 07:13] LABS: BASOPHILS % (AUTO) 0.5 % (0.0-2.0); EOSINOPHILS # (AUTO) 0.2 K/uL (0.0-0.7); EOSINOPHILS % (AUTO) 2.4 % (0.0-7.0); HEMATOCRIT 36.4 % (36.7-47.1); HEMOGLOBIN 12.1 g/dL (12.5-16.3); LYMPHOCYTES # (AUTO) 2.7 K/uL (20.0-40.0); LYMPHOCYTES % (AUTO) 28.4 % (20.5-51.5); MEAN CORPUSCULAR HGB CONC 33 g/dL (32.5-36.3); MEAN CORPUSCULAR VOLUME 86.9 fL (73.0-96.2); MONOCYTES # (AUTO) 1.3 K/uL (2.0-10.0); MONOCYTES % (AUTO) 13.8 % (0.0-11.0); NEUTROPHILS # (AUTO) 5.2 K/uL (1.8-8.9); NEUTROPHILS % (AUTO) 54.9 % (38.5-71.5); PLATELET COUNT (AUTO) 162 K/uL (152-348); RED BLOOD CELL COUNT(AUTO) 4.19 MIL/uL (4.06-5.63); WHITE BLOOD COUNT (AUTO) 9.4 K/uL (3.6-10.2)
--- NOTE | 2018-09-26 07:25 | NUR ---
Received patient in bed with HOB elevated, no SOB noted at this time . No c/o pain at this time, IV intact and patient , bed in low position and 2 side rails up . Safety and comfort provided at all times. will continue to monitor and continue treatment.
[2018-09-26 07:31] LABS: CARBON DIOXIDE 30 mmol/L (21-32); CHLORIDE 102 mmol/L (98-107); CHOLESTEROL 112 mg/dL (<200); CREATININE 0.7 mg/dL (0.6-1.3); GLUCOSE 99 mg/dL (74-106); HDL CHOLESTEROL 33 mg/dL (40-60); MAGNESIUM 1.8 mg/dL (1.8-2.4); PHOSPHOROUS 3.9 mg/dL (2.5-4.9); POTASSIUM 4.3 mmol/L (3.5-5.1); TRIGLYCERIDES 98 MG/DL (30-150); UREA NITROGEN, BLOOD 15 mg/dL (7-18)
[2018-09-26] MEDS: CEphaleXIN 250 MG CAPSULE PO SCH ×2 (07:37→13:56)
[2018-09-26 07:44] LABS: THYROID STIMULATING HORMONE 1.974 mIU/mL (0.358-3.740)
[2018-09-26] MEDS: CARVEDILOL 6.25 MG TABLET PO SCH ×2 (08:12→20:33)
[2018-09-26] MEDS: FUROSEMIDE 20 MG TABLET PO SCH (08:13)
[2018-09-26] MEDS: DIVALPROEX 125 MG TABLET.DR PO SCH ×2 (08:13→20:34)
[2018-09-26] MEDS: MEMANTINE HCL 10 MG TABLET PO SCH ×2 (08:13→16:15)
[2018-09-26] MEDS: CHOLECALCIFEROL 1,000 UNIT TABLET PO SCH (08:13)
[2018-09-26] MEDS: CULTURELLE CAPSULE PO SCH ×2 (08:16→20:33)
[2018-09-26] MEDS ORDERED: Medication Not On Formulary EA (Dextromethorphan Hbr/Quinidine (Nuedexta 20-10 Mg Capsul PO SCH (09:00)
[2018-09-26 10:52] VITALS: BP 103/56
[2018-09-26] MEDS: IV D5 1/2 NS 1000 ML 1,000 ML IV PRN (11:59)
[2018-09-26 15:27] VITALS: BP 129/54
--- NOTE | 2018-09-26 15:40 | NUR ---
Clinical Pharmacy Note: Vancomycin Dosing per Pharmacy Subjective: Vancomycin IV to start on this 88 yo male patient for UTI (waiting for MD note). Objective: BUN 15/Scr 0.7 WBC 9.4 Temperature 97.4 ht 167.6 cm wt 68 kg Assessment/Plan: Will start vancomycin 1000mg IVPB Q16hr for a predicted vancomycin steady state trough level of 16 mcg/ml (per last admission). 1st dose today at 1600. Will draw a vancomycin trough level prior to the 4th dose of vancomycin (not ordered yet). Will monitor renal function and adjust vancomycin dose, if needed, should renal function change significantly. Will follow daily.
[2018-09-26] MEDS: VANCOMYCIN IV 1 G in PREMIXED 0 EACH IV SCH (16:12)
--- NOTE | 2018-09-26 18:25 | NUR ---
Patient in bed with HOB elevated. D/C from telemetry. No SOB noted at this time . No c/o pain at this time. , IV intact and patient , bed in low position and 2 side rails up . safety and comfort provided at all times. will continue to monitor and continue treatment.
--- NOTE | 2018-09-26 19:30 | NUR ---
RECEIVED PATIENT LYING IN BED. A/O X2. NO SIGNS OF ACUTE DISTRESS. SAFETY AND COMFORT MEASURES PROVIDED. BED IN LOWEST POSITION, SIDE RAILS UP X2, CALL LIGHT WITHIN REACH, BED ALARM ON. MORENO CATHETER FOUND LEAKING COMING ONTO SHIFT. CHANGED MORENO CATHETER WITH A 3 WAY, IRRIGATED, AND PATENT. STILL URINATING HEMATURIA AND URINE IS RED. WILL CONTINUE CARE AND MONITOR.
[2018-09-26 20:06] VITALS: BP 118/65
[2018-09-26] MEDS: DOCUSATE SODIUM 100 MG CAPSULE PO SCH (20:33)
[2018-09-26] MEDS: PIPERACILLIN/TAZOBACTAM/D5W 3.375 G in PREMIXED 1 EACH IV SCH (21:22)
[2018-09-27] MEDS: IV D5 1/2 NS 1000 ML 1,000 ML IV PRN ×2 (04:15→23:33)
--- NOTE | 2018-09-27 05:39 | NUR ---
PATIENT SHOWS NO SIGNS OF ACUTE DISTRESS NOTED. IV INTACT. SAFETY AND COMFORT MEASURES PROVIDED. PRESCRIBED MEDICATION GIVEN AND TOLERATED WELL. ASPIRATION PRECAUTION PROVIDED. ELEVATED HOB. WILL ENDORSE ACCORDINGLY TO ONCOMING NURSE FOR CONTINUITY OF CARE. CATHETER CARE PROVIDED EVERY 4 HOURS. HEMATURIA STILL NOTED.
[2018-09-27] MEDS: PIPERACILLIN/TAZOBACTAM/D5W 3.375 G in PREMIXED 1 EACH IV SCH ×3 (05:47→21:36)
[2018-09-27 05:52] VITALS: BP 120/72
[2018-09-27] MEDS: PANTOPRAZOLE SODIUM 40 MG TABLET.DR PO SCH (06:12)
--- NOTE | 2018-09-27 07:15 | NUR ---
PATIENT RECEIVED ON BED ASLEEP, AAOX2 WITH PERIODS OF CONFUSION. NO ACUTE DISTRESS NOTED AT THIS TIME. IV ACCESS ON LEFT FOREARM #18 RUNNING D5 1/2NS @ 75 CC/HR. ON FIONA MATTRESS. FC IN PLACE DRAINING BRIGHT PINK URINE, NO COMPLAINTS OF PAIN/DISCOMFORT AT THIS TIME. COMFORT MEASURES PROVIDED. CALL LIGHT WITHIN REACH. WILL CONTINUE TO MONITOR CLOSELY
[2018-09-27 08:00] LABS: CARBON DIOXIDE 29 mmol/L (21-32); CHLORIDE 100 mmol/L (98-107); CREATININE 0.6 mg/dL (0.6-1.3); GLUCOSE 99 mg/dL (74-106); MAGNESIUM 1.7 mg/dL (1.8-2.4); PHOSPHOROUS 3.8 mg/dL (2.5-4.9); POTASSIUM 4.2 mmol/L (3.5-5.1); UREA NITROGEN, BLOOD 10 mg/dL (7-18)
[2018-09-27 08:05] LABS: BASOPHILS % (AUTO) 0.5 % (0.0-2.0); EOSINOPHILS # (AUTO) 0.3 K/uL (0.0-0.7); EOSINOPHILS % (AUTO) 3.2 % (0.0-7.0); LYMPHOCYTES # (AUTO) 1.5 K/uL (20.0-40.0); LYMPHOCYTES % (AUTO) 18.2 % (20.5-51.5); MEAN CORPUSCULAR HGB CONC 33 g/dL (32.5-36.3); MEAN CORPUSCULAR VOLUME 87.2 fL (73.0-96.2); MONOCYTES # (AUTO) 1.2 K/uL (2.0-10.0); MONOCYTES % (AUTO) 15.1 % (0.0-11.0); PLATELET COUNT (AUTO) 144 K/uL (152-348); RED BLOOD CELL COUNT(AUTO) 4.13 MIL/uL (4.06-5.63)
[2018-09-27] MEDS: VANCOMYCIN IV 1 G in PREMIXED 0 EACH IV SCH ×2 (08:35→23:26)
[2018-09-27] MEDS: CULTURELLE CAPSULE PO SCH ×2 (08:54→20:43)
[2018-09-27] MEDS: CHOLECALCIFEROL 1,000 UNIT TABLET PO SCH (08:54)
[2018-09-27] MEDS: MEMANTINE HCL 10 MG TABLET PO SCH ×2 (08:54→17:40)
[2018-09-27] MEDS: FUROSEMIDE 20 MG TABLET PO SCH (08:54)
[2018-09-27] MEDS: DIVALPROEX 125 MG TABLET.DR PO SCH ×2 (08:54→20:43)
[2018-09-27] MEDS: CARVEDILOL 6.25 MG TABLET PO SCH ×2 (08:54→20:43)
--- NOTE | 2018-09-27 10:45 | NUR ---
SEEN AND EXAMINED BY BRITTA SOARES NP. WILL CONTINUE TO MONITOR CLOSELY
--- NOTE | 2018-09-27 11:00 | NUR ---
PATIENT NOTED LEFT FOREARM #18 IV SITE IS RED AND LEAKING. REINSERTED NEW IV ACCESS ON LEFT HAND #22, GOOD BLOOD FLOW RETURN NOTED, RESUMED IVF, INFUSING WELL
[2018-09-27 11:37] LABS: LYMPHOCYTES % (MANUAL) 21 % (20-40); METAMYELOCYTES % 1 % (0-1); MONOCYTES % (MANUAL) 11 % (2-10); NEUTROPHILS % (MANUAL) 67 % (42-75)
[2018-09-27 11:44] VITALS: BP 107/51
[2018-09-27] MEDS ORDERED: MULT-1188 PO (13:25)
[2018-09-27] MEDS ORDERED: ASCO500P18 PO (13:26)
--- NOTE | 2018-09-27 14:25 | NUR ---
Clinical Pharmacy Note: Vancomycin Dosing per Pharmacy Subjective: Vancomycin IV to continue on this 88 yo male patient for UTI (waiting for MD note). Objective: BUN 10/Scr 0.6 WBC 8.0 Temperature 98 ht 167.6 cm wt 68 kg trough pending tomorrow 1530 Assessment/Plan: Will continue vancomycin 1000mg IVPB Q16hr for a predicted vancomycin steady state trough level of 16 mcg/ml (per last admission). 2nd dose today at 0800. Ordered trough before 4th scheduled dose, due tomorrow at 1530. Will check trough when available and adjust as needed. Will follow
[2018-09-27 15:44] VITALS: BP 107/54
[2018-09-27] MEDS: MAGNESIUM SULFATE/D5W 100 ML IV SCH ×2 (16:06→17:01)
--- NOTE | 2018-09-27 18:43 | NUR ---
PATIENT REMAINED STABLE THROUGHOUT SHIFT. FC STILL IN PLACE DRAINING YELLOW TO PINK TINGED URINE. IV ACCESS ON LEFT HAND #22 STILL INTACT AND PATENT IVF INFUSING WELL. ALL NEEDS ATTENDED AND ANTICIPATED. WILL ENDORSE ACCORDINGLY.
--- NOTE | 2018-09-27 19:44 | NUR ---
Received patient awake in bed, confused but not in any form of distress and not complaining of pain. IV access now at right hand to ongoing IVF, infusing well. Still with clifton catheter in place, noted now with clear urine output, will continue irrigation as ordered to monitor for clots. With air mattress in place. Bed in low position, locked, side rails up for safety. Will continue to monitor.
[2018-09-27 20:37] VITALS: BP 106/55
[2018-09-27] MEDS: DOCUSATE SODIUM 100 MG CAPSULE PO SCH (20:43)
[2018-09-28] MEDS: LORAZEPAM 2 MG/1 ML VIAL IV PRN (00:56)
[2018-09-28 04:37] VITALS: BP 109/61
--- NOTE | 2018-09-28 05:33 | NUR ---
Patient slept intermittently throughout the night. No complaints made. No distress noted. Still with IV access at right hand, intact. With clifton catheter to urine bag with clear yellow urine. Attended all needs. Ensured safety and comfort.
[2018-09-28] MEDS: PIPERACILLIN/TAZOBACTAM/D5W 3.375 G in PREMIXED 1 EACH IV SCH (05:49)
[2018-09-28] MEDS: PANTOPRAZOLE SODIUM 40 MG TABLET.DR PO SCH (06:09)
[2018-09-28 07:04] LABS: BASOPHILS % (AUTO) 0.5 % (0.0-2.0); EOSINOPHILS # (AUTO) 0.3 K/uL (0.0-0.7); EOSINOPHILS % (AUTO) 3.5 % (0.0-7.0); HEMOGLOBIN 11.9 g/dL (12.5-16.3); LYMPHOCYTES # (AUTO) 1.5 K/uL (20.0-40.0); LYMPHOCYTES % (AUTO) 18.2 % (20.5-51.5); MEAN CORPUSCULAR HEMOGLOBIN 29.9 uug (23.8-33.4); MEAN CORPUSCULAR HGB CONC 34 g/dL (32.5-36.3); MONOCYTES # (AUTO) 1.4 K/uL (2.0-10.0); MONOCYTES % (AUTO) 17.5 % (0.0-11.0); NEUTROPHILS % (AUTO) 60.3 % (38.5-71.5); PLATELET COUNT (AUTO) 139 K/uL (152-348); RED BLOOD CELL COUNT(AUTO) 3.98 MIL/uL (4.06-5.63); WHITE BLOOD COUNT (AUTO) 8.2 K/uL (3.6-10.2)
[2018-09-28 07:26] LABS: CARBON DIOXIDE 28 mmol/L (21-32); CHLORIDE 98 mmol/L (98-107); CREATININE 0.7 mg/dL (0.6-1.3); GLUCOSE 96 mg/dL (74-106); MAGNESIUM 2.1 mg/dL (1.8-2.4); PHOSPHOROUS 3.4 mg/dL (2.5-4.9); POTASSIUM 4.2 mmol/L (3.5-5.1); UREA NITROGEN, BLOOD 8 mg/dL (7-18)
[2018-09-28] MEDS: CULTURELLE CAPSULE PO SCH (08:21)
[2018-09-28] MEDS: DIVALPROEX 125 MG TABLET.DR PO SCH (08:21)
[2018-09-28] MEDS: MEMANTINE HCL 10 MG TABLET PO SCH (08:21)
[2018-09-28] MEDS: CHOLECALCIFEROL 1,000 UNIT TABLET PO SCH (08:21)
[2018-09-28] MEDS: FUROSEMIDE 20 MG TABLET PO SCH (08:21)
[2018-09-28] MEDS: CARVEDILOL 6.25 MG TABLET PO SCH (08:22)
--- NOTE | 2018-09-28 08:27 | NUR ---
patient noted resting in bed, no complaints of pain, no signs of distress noted, clear yellow urine noted draining to clifton bag, call light in reach, bed locked and in lowest position, all needs met, took all AM medications, d5 1/2 NS noted running at 75 ml/hr
[2018-09-28 08:33] LABS: EOSINOPHILS % (MANUAL) 2 % (0-8); LYMPHOCYTES % (MANUAL) 18 % (20-40); MONOCYTES % (MANUAL) 14 % (2-10); NEUTROPHILS % (MANUAL) 66 % (42-75)
[2018-09-28 12:40] VITALS: BP 100/55
[2018-09-28] MEDS ORDERED: CEPH-570 PO (12:48)
[2018-09-28] MEDS ORDERED: DOCU100C36 PO (12:48)
--- NOTE | 2018-09-28 15:15 | NUR ---
Patient discharge to [facility] at this time via [facility] and erika, pictures of bilateral heels taken and placed in chart, patient's son Efraín dash called without answer, report given to Alyssa, iv in right wrist discontinued at this time, vitals in sole tacker set, exit care provided, discharge instructions given, patient unable to sign own paperwork.
== END 2018-09-28 15:15 | DRG 689 ==
LOC: ER 16:49 → TELE3 19:44 → MEDSURG3 09-26 11:38
PROVIDERS: ADMIT Registered Nurse; ATTEND Registered Nurse
DX: N39.0 Urinary tract infection, site not specified (principal); R53.2 Functional quadriplegia; I50.32 Chronic diastolic (congestive) heart failure; E44.0 Moderate protein-calorie malnutrition; I42.9 Cardiomyopathy, unspecified; G93.40 Encephalopathy, unspecified; I11.0 Hypertensive heart disease with heart failure; B96.89 Other specified bacterial agents as the cause of diseases classified elsewhere; R31.0 Gross hematuria; G30.9 Alzheimer's disease, unspecified; F02.80 Dementia in other diseases classified elsewhere, unspecified severity, without behavioral disturbance, psychotic disturbance, mood disturbance, and anxiety; Z95.810 Presence of automatic (implantable) cardiac defibrillator; Z79.02 Long term (current) use of antithrombotics/antiplatelets; E86.0 Dehydration; Z68.24 Body mass index [BMI] 24.0-24.9, adult; L89.620 Pressure ulcer of left heel, unstageable; L89.610 Pressure ulcer of right heel, unstageable; Z98.1 Arthrodesis status; M81.0 Age-related osteoporosis without current pathological fracture; F31.9 Bipolar disorder, unspecified; F20.9 Schizophrenia, unspecified; D69.2 Other nonthrombocytopenic purpura; F41.9 Anxiety disorder, unspecified; K80.20 Calculus of gallbladder without cholecystitis without obstruction; N40.0 Benign prostatic hyperplasia without lower urinary tract symptoms; Z79.01 Long term (current) use of anticoagulants; Z87.891 Personal history of nicotine dependence; R74.0 Nonspecific elevation of levels of transaminase and lactic acid dehydrogenase [LDH]
CPT/HCPCS: 36415; 83735; 84100; 84443; 85025; 85730; 87086; 97110; 97530; A4217; A4663; G0378; J2060; J2543; J3370; J3475; J3490; J7030